=== PATIENT | male | born 1955 | race Caucasian/White ===

== ENCOUNTER 2022-05-18 16:21 | Inpatient (IN) ==
[2022-05-18] MEDS ORDERED: ASPIRIN CHEW 324 MG PO STA (16:23)
--- NOTE | 2022-05-18 16:27 | Emergency Department Note ---
Past Med/Surg History Medical History (Updated 01/18/20 @ 00:02 by Background Tejal) Atrial fibrillation DX 6-7 YEARS; ON WARFARIN; FOLLOWS W/ DR. MCCARTHY Cardiac murmur A CHILD Chronic back pain Gout Hyperlipidemia Hypertension Osteoarthritis Poor historian Stroke EMBOLIC - 7 YEARS AGO - [facility] --> [place] - FOLLOWS W/ [facility] - CAUSE? 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 Surgical History History of cardiac cath MULTIPLE - [facility] - [place] - TOTAL OF 8 STENTS PLACED - MOST RECENT CATH APPROX 10 YEARS AGO History of cataract extraction with lens replacement 11/07/18 [facility] [place] History of colonoscopy W/ POLYPECTOMY History of coronary artery bypass graft APPROX 10 YEARS AGO - [facility] - 2 VESSELS - FOLLOWS W/ DR. MCCARTHY Social History Smoking Status: Never smoker Cigarettes Per Day: 0; Second Hand Exposure: No; Hx Alcohol Use: Yes Alcohol type: beer Hx Substance Use: No Preferred Language: Qatari Communication Ability: Effective Senior Manufacturing Engineer Required: No Beliefs That Will Affect Care: None Current Living Situation: Alone Feels Safe at Home: Yes Assistive Devices: Denture - Upper Allergies Allergies Allergy/AdvReac Type Severity Reaction Status Date / Time No Known Drug Allergies Allergy Unknown NKDA Verified 01/03/20 14:53 Home Meds Home Medications Medication Instructions Recorded Confirmed allopurinol 300 mg tablet 300 mg PO HS 10/19/18 01/03/20 aspirin 81 mg tablet,delayed 81 mg PO QAM 10/19/18 01/03/20 release isosorbide mononitrate 60 mg 60 mg PO QAM 10/19/18 01/03/20 tablet,extended release 24 hr metoprolol succinate 50 mg 50 mg PO QAM 10/19/18 01/03/20 tablet,extended release 24 hr nitroglycerin 0.4 mg sublingual 1 tab sublingual UD PRN Chest Pain 10/19/18 01/03/20 tablet ranolazine 500 mg tablet,extended 500 mg PO BID 10/19/18 01/03/20 release,12 hr (Ranexa) rosuvastatin 40 mg tablet 40 mg PO QPM 10/19/18 01/03/20 trazodone 50 mg tablet 50 mg PO HS 10/19/18 01/03/20 warfarin 5 mg tablet 5 mg PO SUTUTHSA 10/19/18 01/03/20 warfarin 5 mg tablet 7.5 mg PO MOWEFR 01/03/20 01/03/20 Discharge Plan Visit Data ED Provider: Agapito Mason Prescriptions Prescriptions: No Action trazodone 50 mg Tablet 50 mg PO HS metoprolol succinate 50 mg Tablet Extended Release 24 Hr 50 mg PO QAM aspirin 81 mg Tablet,Delayed Release (Dr/Ec) 81 mg PO QAM isosorbide mononitrate 60 mg Tablet Extended Release 24 Hr 60 mg PO QAM warfarin 5 mg Tablet 5 mg PO SUT allopurinol 300 mg Tablet 300 mg PO HS rosuvastatin 40 mg Tablet 40 mg PO QPM ranolazine [Ranexa] 500 mg Tablet Extended Release 12 Hr 500 mg PO BID nitroglycerin 0.4 mg Tablet, Sublingual 1 tab sublingual UD PRN (Reason: Chest Pain) warfarin 5 mg tablet 7.5 mg PO MO Referrals Referrals: Kuldeep Briggs MD [Primary Care Provider] -
[2022-05-18] MEDS ORDERED: dilTIAZem HCl 5 MG/ML 5 ML VIAL IV STA ×2 (16:28→16:39)
[2022-05-18] MEDS ORDERED: dilTIAZem HCl 5 MG/ML 5 ML VIAL IV ONE (16:30)
[2022-05-18] MEDS ORDERED: SODIUM CHLORIDE 0.9% 500 ML IV SCH (16:30)
--- NOTE | 2022-05-18 16:34 | Emergency Department Note ---
Impression & Plan Atrial fibrillation with rapid ventricular response, Chest pain, Right bundle branch block, Elevated troponin I level ED Provider Note NAME: PORTILLO HURLEY AGE: 67 SEX: M : 1955 ARRIVES VIA: Ambulance INFORMANT: Patient, EMS ED PROVIDER(S): Jonah Loyd DO CHIEF COMPLAINT: Chest pain HPI: The patient is a 67-year-old male who with a history of coronary artery disease coronary artery bypass as well as cryptogenic stroke who presented to the emergency department for an evaluation of chest pain. The patient said a cardiology appointment up with his primary cardiology group today because he has been experiencing chest pain. He normally uses nitroglycerin fairly regularly but over the last few weeks has been using it more often. He denies having any nausea or vomiting. He has noticed some exertional dyspnea recently. The patient denies having any fever. He denies having any hemoptysis. He denies having any black or bloody bowel months. The patient states he went to see his curtain stretcher today and when he was seen he was found to be in rapid atrial fibrillation. 911 was called. The patient arrived at the emergency department via ambulance. I did receive a prehospital notification about the patient. I reviewed the patient's EKG. The patient was treated with a small IV fluid bolus. He was found to be in rapid atrial fibrillation with a right bundle branch block. The EKG was changed compared with his most previous EKG which was from 2009. No EKG was provided by the prehospital personnel or by the patient's primary cardiology office I would have to assume the right bundle branch is new compared to the previous so Cardizem was not given prior to arrival. ROS: See above HPI for pertinent positives & negatives. A total of 10 systems reviewed and were otherwise negative. PAST MEDICAL HISTORY: See Below PAST SURGICAL HISTORY: See Below FAMILY HISTORY: See Below SOCIAL HISTORY: See Below HOME MEDICATIONS: See Below ALLERGIES: See Below VITALS: See Below PHYSICAL EXAMINATION: GENERAL: Patient is awake alert in no acute distress patient is resting comfo rtably and showing no signs of anxiety EYES: The conjunctivae are clear. The pupils are round and reactive. EARS, NOSE, MOUTH AND THROAT: The nose is without any evidence of any deformity. NECK: The neck is nontender and supple. RESPIRATORY: Normal respiratory effort is noted there is no evidence of wheezing rhonchi or rales CARDIOVASCULAR: Tachycardic and irregular heart sounds were noted auscultation. There is no definite murmur noted. GASTROINTESTINAL: The abdomen is soft. Abdomen is nontender. MUSCULOSKELETAL/EXTREMITIES: There is no evidence of gross deformity full range of motion is noted in the hips and shoulders. SKIN: There is no obvious evidence of any rash. There are no petechiae, pallor or cyanosis noted. NEUROLOGIC: Patient is awake alert and oriented x3. MEDICAL DECISION MAKING: The patient is a 67-year-old male who has a history of atrial fibrillation and stroke who presented to the emergency department for an evaluation of palpitations and chest pain. The patient has been having chest pain relieved with nitroglycerin for the last week. Given the patient's presentation today I feel this could be consistent with rapid A. fib that he has been having over the last few days at least. The patient was seen at his primary curtain stretcher office and sent to the emergency department for further evaluation. The patient was treated with a small fluid bolus as well as IV Cardizem multiple times. He was found to have a supratherapeutic INR. He was felt to be a good candidate for cardioversion in the emergency department. Given the patient's acuity his n.p.o. status was felt to be adequate. I discussed the patient's laboratory and radiographic studies with him. I discussed his condition with his [facility] curtain stretcher as well as the [facility] hospitalist. The patient was cardioverted multiple times in the ER but ultimately kept going back into A. fib with RVR. Further cardiac medications were ordered at the discretion of the curtain stretcher. Triage Nursing notes reviewed. Prior medical records reviewed Vital Signs: reviewed and remarkable for tachycardia and tachypnea. Differential diagnosis: Cardiac ischemia, aortic dissection, pulmonary embolism, pneumothorax, pneumonia, pericarditis, myocarditis, esophageal rupture, GERD, cholecystitis, pancreatitis, musculoskeletal, as well as other pathologies. ER treatment provided: See below Diagnostics interpreted by me: ECG: EKG was obtained in the emergency department. My interpretation is atrial fibrillation at 193 bpm. A right bundle branch block pattern was favored. Nonspecific ST segment abnormalities were also noted. This was compared to a tracing from July 14, 2010. The previous QRS duration was 92 ms. This does represent a new right bundle branch block with a new atrial fibrillation with RVR. The patient's prehospital EKG was also reviewed. This appears to be consistent with atrial fibrillation with RVR at 194 bpm. There were no PVCs noted. Similar ST segment abnormalities were also noted. Cardiac Monitoring: An order was placed for continuous cardiac monitoring. The monitor shows a rate of 172 bpm with A. fib with RVR. Laboratory studies: As stated above and show below. Imaging studies: See below Consultation(s): I discussed this case with Dr. Benz who is on-call for [facility] cardiology. I discussed this case with the [facility] hospitalist group. They have agreed to evaluate the patient in the emergency department. ED COURSE: Procedures: Procedural Sedation Indication A. fib with RVR. Total time: 20minutes. Written consent was obtained after the risks and benefits were explained to the patient, including, but not limited to aspiration, allergic reaction, breathing difficulties, cardiac complications, vomiting, pain, event recall, bleeding, and/or infection. Pre-sedation examination and paperwork completed. The pa tient was on 100% oxygen via NRB prior to the procedure. Continous end tidal CO2 monitoring, pulse oximetry, and cardiac monitoring were utilized. Suction, airway equipment, medications, respiratory equipment, and appropriate personnel were prepared prior to the initiation of the procedure. A time out was taken. Sedation was achieved utilizing 60 mg of propofol. After I observed the patient had reached the appropriate level of sedation the main procedure was performed without complication. Sedation was discontinued and the monitoring continued. The patient recovered quickly from the effects of the medication without complication or adverse event. Critical Care: I have personally spent greater than 55 minutes of critical care time in the direct management of this patient. This includes bedside care, interpretation of diagnostic studies, and testing, discussion with consultants, patient, and family members, and other required patient management activities. This 55 minutes is in excess of all separately billable procedures. Past Med/Surg History Medical History (Updated 05/18/22 @ 23:50 by Jonah Loyd DO) Atrial fibrillation DX 6-7 YEARS; ON WARFARIN; FOLLOWS [facility]/ DR. MCCARTHY Bifascicular block CAD (coronary artery disease) Cardiac murmur A CHILD Chronic back pain CKD (chronic kidney disease), stage III Gout Hyperlipidemia Hypertension Osteoarthritis Poor historian Stroke EMBOLIC - 7 YEARS AGO - [facility] [place] - FOLLOWS W/ ANATOLIY NEUROLOGY - CAUSE? 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 Surgical History History of cardiac cath MULTIPLE - ANATOLIY CROWE - CP - TOTAL OF 8 STENTS PLACED - MOST RECENT CATH APPROX 10 YEARS AGO History of cataract extraction with lens replacement 11/07/18 [facility] LEFT EYE History of colonoscopy W/ POLYPECTOMY History of coronary artery bypass graft APPROX 10 YEARS AGO - [facility] 2 VESSELS - FOLLOWS W/ DR. 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 Beliefs That Will Affect Care: None Current Living Situation: Alone Feels Safe at Home: Yes Safety Concerns: Feels Safe At This Time Assistive Devices: Cane and Denture - Upper Allergies Allergies Allergy/AdvReac Type Severity Reaction Status Date / Time No Known Drug Allergies Allergy Unknown NKDA Verified 01/03/20 14:53 Home Meds Home Medications Medication Instructions Recorded Confirmed allopurinol 300 mg tablet 300 mg PO HS 10/19/18 05/18/22 aspirin 81 mg tablet,delayed 81 mg PO QAM 10/19/18 05/18/22 release isosorbide mononitrate 60 mg 90 mg PO QAM 10/19/18 05/18/22 tablet,extended release 24 hr metoprolol succinate 50 mg 25 mg PO QAM 10/19/18 05/18/22 tablet,extended release 24 hr nitroglycerin 0.4 mg sublingual 1 tab sublingual UD PRN Chest Pain 10/19/18 05/18/22 tablet ranolazine 500 mg tablet,extended 500 mg PO BID 10/19/18 05/18/22 release,12 hr (Ranexa) trazodone 50 mg tablet 150 mg PO HS 10/19/18 05/18/22 warfarin 5 mg tablet 5 mg PO UD 10/19/18 05/18/22 warfarin 5 mg tablet 7.5 mg PO UD 01/03/20 05/18/22 evolocumab 140 mg/mL subcutaneous 140 mg subcut . EVERY 14 DAYS 05/18/22 05/18/22 pen injector (Repatha SureClick) latanoprost 0.005 % eye drops 1 drp OPL HS 05/18/22 05/18/22 prednisone 10 mg tablet 10 mg PO UD 05/18/22 05/18/22 Results & Data (ED) Vital Signs Vital Signs - 24 hr 05/18/22 16:43 05/18/22 16:45 05/18/22 16:30 Temperature 37.1 C Temperature Source Oral Pulse Rate 190 H 205 H 193 H Pulse Rate from SpO2 Sensor 69 80 Pulse Rhythm Regular Pulse Strength Normal Respiratory Rate 25 H 24 20 Respiratory Effort / Characteristics Non-Labored Spontaneous Respiratory Depth Normal Respiratory Pattern Regular Blood Pressure 133/114 H 118/88 132/75 Blood Pressure Mean 120 98 94 Blood Pressure Position Sitting Pulse Oximetry 97 97 94 Oxygen Delivery Method Room Air Oxygen Flow Rate Sepsis Recent Fever Within 48 Hours No Sepsis New/Unexplained Change in Mental Status No Sepsis Action Taken by Nursing No Action Required End-Tidal CO2 05/18/22 16:57 05/18/22 17:11 05/18/22 17:11 Temperature Temperature Source Pulse Rate 203 H Pulse Rate from SpO2 Sensor 73 Pulse Rhythm Pulse Strength Respiratory Rate 23 Respiratory Effort / Characteristics Respiratory Depth Respiratory Pattern Blood Pressure 117/89 Blood Pressure Mean 98 Blood Pressure Position Pulse Oximetry 92 Oxygen Delivery Method Room Air Oxygen Flow Rate 2 Sepsis Recent Fever Within 48 Hours Sepsis New/Unexplained Change in Mental Status Sepsis Action Taken by Nursing End-Tidal CO2 05/18/22 17:15 05/18/22 17:22 05/18/22 17:22 Temperature Temperature Source Pulse Rate 203 H 167 H Pulse Rate from SpO2 Sensor 77 Pulse Rhythm Pulse Strength Respiratory Rate 24 24 Respiratory Effort / Characteristics Respiratory Depth Respiratory Pattern Blood Pressure 122/88 Blood Pressure Mean 99 Blood Pressure Position Pulse Oximetry 92 93 Oxygen Delivery Method Oxygen Flow Rate Sepsis Recent Fever Within 48 Hours Sepsis New/Unexplained Change in Mental Status Sepsis Action Taken by Nursing End-Tidal CO2 22 25 05/18/22 17:30 05/18/22 17:31 05/18/22 17:31 Temperature Temperature Source Pulse Rate 174 H 170 H Pulse Rate from SpO2 Sensor 74 78 Pulse Rhythm Pulse Strength Respiratory Rate 20 20 Respiratory Effort / Characteristics Respiratory Depth Respiratory Pattern Blood Pressure 115/89 Blood Pressure Mean 97 Blood Pressure Position Pulse Oximetry 98 98 Oxygen Delivery Method Oxygen Flow Rate Sepsis Recent Fever Within 48 Hours Sepsis New/Unexplained Change in Mental Status Sepsis Action Taken by Nursing End-Tidal CO2 27 24 05/18/22 17:41 05/18/22 17:41 05/18/22 17:43 Temperature Temperature Source Pulse Rate 195 H Pulse Rate from SpO2 Sensor 80 Pulse Rhythm Pulse Strength Respiratory Rate 20 Respiratory Effort / Characteristics Respiratory Depth Respiratory Pattern Blood Pressure 98/76 L 123/79 Blood Pressure Mean 83 93 Blood Pressure Position Pulse Oximetry 97 Oxygen Delivery Method Oxygen Flow Rate Sepsis Recent Fever Within 48 Hours Sepsis New/Unexplained Change in Mental Status Sepsis Action Taken by Nursing End-Tidal CO2 26 05/18/22 17:43 05/18/22 17:45 05/18/22 17:47 Temperature Temperature Source Pulse Rate 176 H 126 H Pulse Rate from SpO2 Sensor 80 91 H Pulse Rhythm Pulse Strength Respiratory Rate 21 17 Respiratory Effort / Characteristics Respiratory Depth Respiratory Pattern Blood Pressure 108/70 Blood Pressure Mean 82 Blood Pressure Position Pulse Oximetry 97 97 Oxygen Delivery Method Oxygen Flow Rate Sepsis Recent Fever Within 48 Hours Sepsis New/Unexplained Change in Mental Status Sepsis Action Taken by Nursing End-Tidal CO2 27 27 05/18/22 17:47 05/18/22 17:50 05/18/22 17:50 Temperature Temperature Source Pulse Rate 167 H 195 H Pulse Rate from SpO2 Sensor 79 71 Pulse Rhythm Pulse Strength Respiratory Rate 22 20 Respiratory Effort / Characteristics Respiratory Depth Respiratory Pattern Blood Pressure 102/70 Blood Pressure Mean 80 Blood Pressure Position Pulse Oximetry 98 95 Oxygen Delivery Method Oxygen Flow Rate Sepsis Recent Fever Within 48 Hours Sepsis New/Unexplained Change in Mental Status Sepsis Action Taken by Nursing End-Tidal CO2 25 26 05/18/22 17:53 05/18/22 17:53 05/18/22 17:56 Temperature Temperature Source Pulse Rate 183 H 153 H Pulse Rate from SpO2 Sensor 77 83 Pulse Rhythm Pulse Strength Respiratory Rate 30 H 21 Respiratory Effort / Characteristics Respiratory Depth Respiratory Pattern Blood Pressure 93/70 L Blood Pressure Mean 77 Blood Pressure Position Pulse Oximetry 94 96 Oxygen Delivery Method Oxygen Flow Rate Sepsis Recent Fever Within 48 Hours Sepsis New/Unexplained Change in Mental Status Sepsis Action Taken by Nursing End-Tidal CO2 25 28 05/18/22 17:56 05/18/22 17:59 05/18/22 17:59 Temperature Temperature Source Pulse Rate 155 H Pulse Rate from SpO2 Sensor 76 Pulse Rhythm Pulse Strength Respiratory Rate 20 Respiratory Effort / Characteristics Respiratory Depth Respiratory Pattern Blood Pressure 102/72 102/69 Blood Pressure Mean 82 80 Blood Pressure Position Pulse Oximetry 95 Oxygen Delivery Method Oxygen Flow Rate Sepsis Recent Fever Within 48 Hours Sepsis New/Unexplained Change in Mental Status Sepsis Action Taken by Nursing End-Tidal CO2 27 05/18/22 18:00 05/18/22 18:00 05/18/22 18:02 Temperature Temperature Source Pulse Rate 175 H 192 H Pulse Rate from SpO2 Sensor 62 74 Pulse Rhythm Pulse Strength Respiratory Rate 26 H 17 Respiratory Effort / Characteristics Respiratory Depth Respiratory Pattern Blood Pressure 94/72 L Blood Pressure Mean 79 Blood Pressure Position Pulse Oximetry 95 96 Oxygen Delivery Method Oxygen Flow Rate Sepsis Recent Fever Within 48 Hours Sepsis New/Unexplained Change in Mental Status Sepsis Action Taken by Nursing End-Tidal CO2 05/18/22 18:02 05/18/22 18:04 05/18/22 18:04 Temperature Temperature Source Pulse Rate 167 H Pulse Rate from SpO2 Sensor 77 Pulse Rhythm Pulse Strength Respiratory Rate 24 Respiratory Effort / Characteristics Respiratory Depth Respiratory Pattern Blood Pressure 83/65 L 89/70 L Blood Pressure Mean 71 76 Blood Pressure Position Pulse Oximetry 96 Oxygen Delivery Method Oxygen Flow Rate Sepsis Recent Fever Within 48 Hours Sepsis New/Unexplained Change in Mental Status Sepsis Action Taken by Nursing End-Tidal CO2 05/18/22 18:07 05/18/22 18:07 05/18/22 18:09 Temperature Temperature Source Pulse Rate 173 H Pulse Rate from SpO2 Sensor 79 Pulse Rhythm Pulse Strength Respiratory Rate 25 H Respiratory Effort / Characteristics Respiratory Depth Respiratory Pattern Blood Pressure 101/51 L 90/71 L Blood Pressure Mean 67 77 Blood Pressure Position Pulse Oximetry 94 Oxygen Delivery Method Oxygen Flow Rate Sepsis Recent Fever Within 48 Hours Sepsis New/Unexplained Change in Mental Status Sepsis Action Taken by Nursing End-Tidal CO2 05/18/22 18:09 05/18/22 18:14 05/18/22 18:14 Temperature Temperature Source Pulse Rate 166 H 154 H Pulse Rate from SpO2 Sensor 80 96 H Pulse Rhythm Pulse Strength Respiratory Rate 16 28 H Respiratory Effort / Characteristics Respiratory Depth Respiratory Pattern Blood Pressure 181/147 H Blood Pressure Mean 158 Blood Pressure Position Pulse Oximetry 96 91 Oxygen Delivery Method Oxygen Flow Rate Sepsis Recent Fever Within 48 Hours Sepsis New/Unexplained Change in Mental Status Sepsis Action Taken by Nursing End-Tidal CO2 05/18/22 18:15 05/18/22 18:19 05/18/22 18:19 Temperature Temperature Source Pulse Rate 178 H 147 H Pulse Rate from SpO2 Sensor 92 H 103 H Pulse Rhythm Pulse Strength Respiratory Rate 30 H 30 H Respiratory Effort / Characteristics Respiratory Depth Respiratory Pattern Blood Pressure 110/74 Blood Pressure Mean 86 Blood Pressure Position Pulse Oximetry 92 99 Oxygen Delivery Method Oxygen Flow Rate Sepsis Recent Fever Within 48 Hours Sepsis New/Unexplained Change in Mental Status Sepsis Action Taken by Nursing End-Tidal CO2 05/18/22 18:21 05/18/22 18:21 05/18/22 18:27 Temperature Temperature Source Pulse Rate 196 H 164 H Pulse Rate from SpO2 Sensor Pulse Rhythm Pulse Strength Respiratory Rate 22 21 Respiratory Effort / Characteristics Respiratory Depth Respiratory Pattern Blood Pressure 80/66 L Blood Pressure Mean 70 Blood Pressure Position Pulse Oximetry 93 91 Oxygen Delivery Method Oxygen Flow Rate Sepsis Recent Fever Within 48 Hours Sepsis New/Unexplained Change in Mental Status Sepsis Action Taken by Nursing End-Tidal CO2 05/18/22 18:27 05/18/22 18:30 05/18/22 18:31 Temperature Temperature Source Pulse Rate 163 H Pulse Rate from SpO2 Sensor 79 Pulse Rhythm Pulse Strength Respiratory Rate 22 Respiratory Effort / Characteristics Respiratory Depth Respiratory Pattern Blood Pressure 93/69 L 122/44 L Blood Pressure Mean 77 70 Blood Pressure Position Pulse Oximetry 98 Oxygen Delivery Method Oxygen Flow Rate Sepsis Recent Fever Within 48 Hours Sepsis New/Unexplained Change in Mental Status Sepsis Action Taken by Nursing End-Tidal CO2 05/18/22 18:31 05/18/22 18:41 05/18/22 18:41 Temperature Temperature Source Pulse Rate 176 H 141 H Pulse Rate from SpO2 Sensor 67 Pulse Rhythm Pulse Strength Respiratory Rate 25 H 26 H Respiratory Effort / Characteristics Respiratory Depth Respiratory Pattern Blood Pressure 91/71 L Blood Pressure Mean 77 Blood Pressure Position Pulse Oximetry 98 Oxygen Delivery Method Oxygen Flow Rate Sepsis Recent Fever Within 48 Hours Sepsis New/Unexplained Change in Mental Status Sepsis Action Taken by Nursing End-Tidal CO2 05/18/22 18:45 05/18/22 18:47 05/18/22 18:47 Temperature Temperature Source Pulse Rate 163 H 169 H Pulse Rate from SpO2 Sensor 79 67 Pulse Rhythm Pulse Strength Respiratory Rate 25 H 28 H Respiratory Effort / Characteristics Respiratory Depth Respiratory Pattern Blood Pressure 84/68 L Blood Pressure Mean 73 Blood Pressure Position Pulse Oximetry 91 95 Oxygen Delivery Method Oxygen Flow Rate Sepsis Recent Fever Within 48 Hours Sepsis New/Unexplained Change in Mental Status Sepsis Action Taken by Nursing End-Tidal CO2 05/18/22 19:00 05/18/22 19:15 05/18/22 19:16 Temperature Temperature Source Pulse Rate 148 H 160 H 167 H Pulse Rate from SpO2 Sensor 84 71 Pulse Rhythm Pulse Strength Respiratory Rate 27 H 19 28 H Respiratory Effort / Characteristics Respiratory Depth Respiratory Pattern Blood Pressure Blood Pressure Mean Blood Pressure Position Pulse Oximetry 96 99 95 Oxygen Delivery Method Oxygen Flow Rate Sepsis Recent Fever Within 48 Hours Sepsis New/Unexplained Change in Mental Status Sepsis Action Taken by Nursing End-Tidal CO2 05/18/22 19:16 05/18/22 19:30 05/18/22 19:30 Temperature Temperature Source Pulse Rate 153 H Pulse Rate from SpO2 Sensor 84 Pulse Rhythm Pulse Strength Respiratory Rate 29 H Respiratory Effort / Characteristics Respiratory Depth Respiratory Pattern Blood Pressure 106/73 104/75 Blood Pressure Mean 84 84 Blood Pressure Position Pulse Oximetry 96 Oxygen Delivery Method Oxygen Flow Rate Sepsis Recent Fever Within 48 Hours Sepsis New/Unexplained Change in Mental Status Sepsis Action Taken by Nursing End-Tidal CO2 Home Medications Current Medication List: was personally reviewed by me Laboratory Data Attestation: I reviewed the patient's lab results. Result diagrams: 05/18/22 16:20 05/18/22 16:20 Lab Results 05/18/22 05/18/22 05/18/22 Range/Units 16:20 16:20 16:20 WBC 10.68 (4.8-10.8) K/ul RBC 4.57 L (4.63-6.08) M/uL Hgb 14.3 (14.0-18.0) g/dl Hct 44.0 (40.1-51.0) % MCV 96.3 (80.0-100.0) fL MCH 31.3 (25.0-34.0) pg MCHC 32.5 (32.0-36.0) g/dL RDW Std Deviation 47.4 H (36.4-46.3) fL RDW Coeff of Vivien 13.7 (11.5-14.5) % Plt Count 204 (130-400) K/uL MPV 11.3 (9.4-12.4) fL Immature Gran % (Auto) 0.9 % Neut % (Auto) 69.5 % Lymph % (Auto) 17.1 % Latimer % (Auto) 11.3 % Eos % (Auto) 1.0 % Baso % (Auto) 0.2 % Neut # (Auto) 7.41 H (1.4-6.5) K/uL Lymph # (Auto) 1.83 (1.2-3.4) K/uL Latimer # (Auto) 1.21 H (0.24-0.82) K/uL Eos # (Auto) 0.11 (0-0.50) K/uL Baso # (Auto) 0.02 (0-0.2) K/uL Immature Gran # (Auto) 0.10 H (0.00-0.02) K/uL PT 44.7 H (9.0-12.0) Seconds INR 4.6 H (0.9-1.1) APTT 46.7 H* (21.0-31.0) Seconds PTT Ratio 1.7 Sodium 140 (136-145) mmol/L Potassium 4.5 (3.5-5.1) mmol/L Chloride 104 (98-107) mmol/L Carbon Dioxide 29 (21-32) mmol/L Anion Gap 7 (3-11) BUN 38 H (6-23) mg/dl Creatinine 1.62 H (0.6-1.4) mg/dl Est Cr Clr Drug Dosing 43.4 ml/min Est GFR ( Amer) 50.5 ml/min Est GFR (Non-Af Amer) 43.6 ml/min BUN/Creatinine Ratio 23.5 H (10-20) Glucose 99 (70-99(Fasting)) mg/dl Calcium 9.4 (8.5-10.1) mg/dl Magnesium 2.0 (1.7-2.4) mg/dl Total Bilirubin 1.8 H (0.2-1.0) mg/dl AST 104 H (13-39) U/L ALT 162 H (7-52) U/L Alkaline Phosphatase 83 (34-104) U/L Troponin I High Sens 59.4 H* (0-20) pg/ml Total Protein 6.9 (6.0-8.3) gm/dl Albumin 3.9 (3.4-5.0) gm/dl Globulin 3.0 (2.5-4.0) gm/dl Albumin/Globulin Ratio 1.3 (0.9-2) TSH (0.300-4.500) uIu/ml SARS-CoV-2, RNA, NAAT (NEGATIVE) 05/18/22 05/18/22 Range/Units 16:20 16:47 WBC (4.8-10.8) K/ul RBC (4.63-6.08) M/uL Hgb (14.0-18.0) g/dl Hct (40.1-51.0) % MCV (80.0-100.0) fL MCH (25.0-34.0) pg MCHC (32.0-36.0) g/dL RDW Std Deviation (36.4-46.3) fL RDW Coeff of Vivien (11.5-14.5) % Plt Count (130-400) K/uL MPV (9.4-12.4) fL Immature Gran % (Auto) % Neut % (Auto) % Lymph % (Auto) % Latimer % (Auto) % Eos % (Auto) % Baso % (Auto) % Neut # (Auto) (1.4-6.5) K/uL Lymph # (Auto) (1.2-3.4) K/uL Latimer # (Auto) (0.24-0.82) K/uL Eos # (Auto) (0-0.50) K/uL Baso # (Auto) (0-0.2) K/uL Immature Gran # (Auto) (0.00-0.02) K/uL PT (9.0-12.0) Seconds INR (0.9-1.1) APTT (21.0-31.0) Seconds PTT Ratio Sodium (136-145) mmol/L Potassium (3.5-5.1) mmol/L Chloride (98-107) mmol/L Carbon Dioxide (21-32) mmol/L Anion Gap (3-11) BUN (6-23) mg/dl Creatinine (0.6-1.4) mg/dl Est Cr Clr Drug Dosing ml/min Est GFR ( Amer) ml/min Est GFR (Non-Af Amer) ml/min BUN/Creatinine Ratio (10-20) Glucose (70-99(Fasting)) mg/dl Calcium (8.5-10.1) mg/dl Magnesium (1.7-2.4) mg/dl Total Bilirubin (0.2-1.0) mg/dl AST (13-39) U/L ALT (7-52) U/L Alkaline Phosphatase (34-104) U/L Troponin I High Sens (0-20) pg/ml Total Protein (6.0-8.3) gm/dl Albumin (3.4-5.0) gm/dl Globulin (2.5-4.0) gm/dl Albumin/Globulin Ratio (0.9-2) TSH 1.580 (0.300-4.500) uIu/ml SARS-CoV-2, RNA, NAAT NEGATIVE (NEGATIVE) Administered Medications Amiodarone HCl/Dextrose (Nexterone / D5w) 360 mg in 200 mls @ 33.333 mls/hr IV ONE ONE Stop: 05/19/22 00:05 Last Admin: 05/18/22 18:48 Dose: 1 mg/min, 33.3 mls/hr Documented By: RJ Co-signed By: DUANE Latanoprost (Latanoprost 0.005% Op Soln 2.5 Ml Btl) 1 drops OPL [facility] Stop: 06/17/22 20:59 Last Admin: 05/18/22 22:08 Dose: 1 drops Documented By: ADI Metoprolol Tartrate (Metoprolol Tartrate 25 Mg Tab) 25 mg PO Q6 RAJ Stop: 06/17/22 21:29 Last Admin: 05/18/22 22:08 Dose: 25 mg Documented By: ADI Ranolazine (Ranolazine 500 Mg Er Tab) 500 mg PO BID RAJ Stop: 06/17/22 20:59 Last Admin: 05/18/22 22:07 Dose: 500 mg Documented By: ADI Trazodone HCl (Trazodone Hcl 100 Mg Tab) 100 mg PO RAJ Stop: 06/17/22 20:59 Last Admin: 05/18/22 22:07 Dose: 100 mg Documented By: ADI Discontinued Medications Aspirin (Aspirin Chew 324 Mg) 324 mg PO NOW STA Stop: 05/18/22 16:24 Last Admin: 05/18/22 16:37 Dose: 324 mg Documented By: MEETA Diltiazem HCl (Diltiazem Hcl 5 Mg/Ml 5 Ml Vial) 10 mg IV NOW STA Stop: 05/18/22 16:29 Last Admin: 05/18/22 16:37 Dose: 10 mg Documented By: MEETA Co-signed By: CARMEN Diltiazem HCl (Diltiazem Hcl 5 Mg/Ml 5 Ml Vial) Confirm Administered Dose 25 mg IV .STK-MED ONE Stop: 05/18/22 16:31 Last Admin: 05/18/22 18:42 Dose: Not Given Documented By: RJ Diltiazem HCl (Diltiazem Hcl 5 Mg/Ml 5 Ml Vial) 20 mg IV NOW STA Stop: 05/18/22 16:40 Last Admin: 05/18/22 16:43 Dose: 20 mg Documented By: MEETA Co-signed By: NJ Sodium Chloride (Nss) 500 mls @ 999 mls/hr IV .Q31M RAJ Stop: 05/18/22 17:00 Last Infusion: 05/18/22 18:43 Dose: 0 mls/hr Documented By: Admin: 05/18/22 17:01 Dose: 999 mls/hr Documented By: NJ Amiodarone HCl/Dextrose (Nexterone / D5w) 150 mg in 100 mls @ 600 mls/hr IV NOW STA Stop: 05/18/22 18:07 Last Admin: 05/18/22 18:29 Dose: 600 mls/hr Documented By: RJ Co-signed By: FRANCISCO Digoxin 250 mcg/ Syringe 10 mls @ 2 mls/min IV ONE ONE Stop: 05/18/22 22:34 Last Admin: 05/18/22 22:37 Dose: 2 mls/min Documented By: ADI Metoprolol Tartrate (Metoprolol Tartrate 1 Mg/Ml Vial) Confirm Administered Dose 10 mg IV .STK-MED ONE Stop: 05/18/22 17:46 Last Admin: 05/18/22 18:42 Dose: 5 mg Documented By: RJ Propofol (Propofol Iv Emulsion 10 Mg/Ml 20 Ml Vial) Confirm Administered Dose 200 mg IV .STK-MED ONE Stop: 05/18/22 17:07 Last Admin: 05/18/22 18:28 Dose: 60 mg Documented By: BERNIE Co-signed By: ROMAN Imaging Data Radiologist's Impression: Chest X-Ray 05/18/22 16:24 XR chest 1V portable HISTORY: 67 years-old Male weakness acute weakness COMPARISON: Chest radiograph 07/14/2010 TECHNIQUE: AP view of the chest FINDINGS: Cardiac silhouette is enlarged. Prior median sternotomy. Pulmonary vascular congestion with interstitial coarsening and ill-defined bilateral airspace opacities. No pneumothorax or large pleural effusion. Degenerative changes of the shoulders and spine. Healed mid left clavicular fracture deformity. IMPRESSION: Cardiomegaly with pulmonary vascular congestion and mixed interstitial and alveolar opacities, likely front office representative of pulmonary edema. Pneumonia could appear similarly. ACT 112: Negative or not required by law. The above report was generated using voice recognition software. It may contain grammatical, syntax or spelling errors. Electronically signed by: Stone Snow M.D. 05/18/2022 5:35 PM Discharge Plan Visit Data Chief Complaint: Cardiac Assessment ED Provider: Jonah Loyd Discharge Problem: Atrial fibrillation with rapid ventricular response, Chest pain, Right bundle branch block, Elevated troponin I level Patient Disposition: Admitted As Inpatient Discharge Instructions Interventions: ED Discharge Assessment Last Done: 05/18/22 20:14
--- NOTE | 2022-05-18 16:37 | Cardiology Consultation ---
Date of Consultation May 18, 2022 Assessment & Plan (1) Atrial fibrillation with rapid ventricular response: (2) Right bundle branch block: Plan -Recent outpatient INR on 05/04/22 was at goal. -If INR today is > 2 recommend proceeding with cardioversion in an expedited fashion due to highly symptomatic atrial fibrillation with ventricular rates in the range of 180-200 bpm. -Discussed with patient's son, Mane , by phone. Informed consent obtained form patient who elects to proceed. History of Present Illness History of Present Illness Maikol Layton is a 67-year-old male seen in cardiology consultation per the request of Dr. Loyd for the evaluation of tachycardia. The patient presented to the [facility] cardiology clinic today as an acute visit with 2 days of chest discomfort with associated increased shortness of breath and reduced exercise tolerance as well as pain in his calves preventing him from walking 50 feet. He believes the symptoms have been present x 2 weeks. EKG performed at 1456 at cardiology clinic revealed atrial fibrillation with rapid ventricular response, ventricular rates approaching 200 bpm with right bundle branch block morphology. Cardiac Problem List: 1.Longstanding ischemic heart disease -Multiple coronary interventions, left anterior descending, left anterior descending diagonal, ultimately receiving SCHROEDER graft to LAD and saphenous vein graft to left anterior descending diagonal in 2005. 2.Recurrent coronary interventions with PTCA and stenting of the vein graft to the diagonal in 2007. 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 4.Cardiac catheterization in 2013 with patent grafts and branch vessel disease of septal as culprit for chronic class II-III angina. 5.Dyslipidemia. LDL goal less than 70 mg/dL. Intolerance to statins (simvastatin, atorvastatin, rosuvastatin) as well as Zetia 6.Frequent atrial ectopy. 7.Paroxysmal atrial fibrillation. 8.Bifascicular heart block 9.Chronic coumadin anticoagulation 10. Past history of stroke a few days after coronary intervention Allergies Allergy/AdvReac Type Severity Reaction Status Date / Time No Known Drug Allergies Allergy Unknown NKDA Verified 01/03/20 14:53 Home Medications Medication Instructions Recorded Confirmed Type allopurinol 300 mg tablet 300 mg PO HS 10/19/18 01/03/20 History aspirin 81 mg tablet,delayed 81 mg PO QAM 10/19/18 01/03/20 History release isosorbide mononitrate 60 mg 60 mg PO QAM 10/19/18 01/03/20 History tablet,extended release 24 hr metoprolol succinate 50 mg 50 mg PO QAM 10/19/18 01/03/20 History tablet,extended release 24 hr nitroglycerin 0.4 mg sublingual 1 tab sublingual UD PRN Chest Pain 10/19/18 01/03/20 History tablet ranolazine 500 mg tablet,extended 500 mg PO BID 10/19/18 01/03/20 History release,12 hr (Ranexa) rosuvastatin 40 mg tablet 40 mg PO QPM 10/19/18 01/03/20 History trazodone 50 mg tablet 50 mg PO HS 10/19/18 01/03/20 History warfarin 5 mg tablet 5 mg PO SUTUTHSA 10/19/18 01/03/20 History warfarin 5 mg tablet 7.5 mg PO MOWEFR 01/03/20 01/03/20 History Patient History Medical History Atrial fibrillation DX 6-7 YEARS; ON WARFARIN; FOLLOWS W/ DR. MCCARTHY Cardiac murmur A CHILD Chronic back pain Gout Hyperlipidemia Hypertension Osteoarthritis Poor historian Stroke EMBOLIC - 7 YEARS AGO - [facility] --> [facility] - FOLLOWS W/ [facility] - CAUSE? 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 Surgical History History of cardiac cath MULTIPLE - [facility] - [place] - TOTAL OF 8 STENTS PLACED - MOST RECENT CATH APPROX 10 YEARS AGO History of cataract extraction with lens replacement 11/07/18 [facility] [place] History of colonoscopy W/ POLYPECTOMY History of coronary artery bypass graft APPROX 10 YEARS AGO - [facility] - 2 VESSELS - FOLLOWS W/ DR. MCCARTHY Social History Smoking Status: Never smoker Cigarettes Per Day: 0; Second Hand Exposure: No; Hx Alcohol Use: Yes Alcohol type: beer Hx Substance Use: No Preferred Language: Ivorian Communication Ability: Effective Glue Spreader Required: No Beliefs That Will Affect Care: None Current Living Situation: Alone Feels Safe at Home: Yes Assistive Devices: Denture - Upper Review of Systems Review of Systems: All systems reviewed & are unremarkable except as noted in HPI & below Physical Exam Physical Exam: Temp Pulse Resp BP Pulse Ox O2 Del Method O2 Flow Rate 37.1 C 205 H 24 118/88 97 2 05/18/22 16:30 05/18/22 16:45 05/18/22 16:45 05/18/22 16:45 05/18/22 16:45 05/18/22 16:57 05/18/22 16:57 Constitutional: WD/WN, vitals as above Respiratory: normal respiratory effort, lungs clear to auscultation Cardiovascular: Rate/Rhythm: + tachycardic Heart Sounds: no murmur Extremities: no edema Gastrointestinal (Abdomen): normal bowel sounds, soft, nontender, no hepatosplenomegaly Neurologic: PERRL, EOMI, accommodation nl, no face palsy, no dysarthria Results & Data ([facility]) Laboratory Results CBC 05/18/22 Range/Units 16:20 WBC 10.68 (4.8-10.8) K/ul RBC 4.57 L (4.63-6.08) M/uL Hgb 14.3 (14.0-18.0) g/dl Hct 44.0 (40.1-51.0) % Plt Count 204 (130-400) K/uL Neut # (Auto) 7.41 H (1.4-6.5) K/uL Lymph # (Auto) 1.83 (1.2-3.4) K/uL [place] # (Auto) 1.21 H (0.24-0.82) K/uL Eos # (Auto) 0.11 (0-0.50) K/uL Baso # (Auto) 0.02 (0-0.2) K/uL Intake and Output 05/18/22 05/18/22 05/18/22 06:59 14:59 22:59 Other: Weight 79.4 kg Weight Measurement Method Built in [facility] Patient Weight 05/19/22 06:59 Weight 79.4 kg
[2022-05-18] MEDS ORDERED: PROPOFOL IV EMULSION 10 MG/ML 20 ML VIAL IV ONE (17:06)
[2022-05-18 17:07] LABS: Basophils # (auto) 0.02 K/uL (0-0.2); Basophils % (auto) 0.2 %; Eosinophils # (auto) 0.11 K/uL (0-0.50); Hemoglobin 14.3 g/dl (14.0-18.0); Immature Granulocytes % (auto) 0.9 %; Lymphocytes # (auto) 1.83 K/uL (1.2-3.4); Lymphocytes % (auto) 17.1 %; Mean Corpuscular Hemoglobin 31.3 pg (25.0-34.0); Mean Corpuscular Hgb Conc 32.5 g/dL (32.0-36.0); Mean Corpuscular Volume 96.3 fL (80.0-100.0); Mean Platelet Volume 11.3 fL (9.4-12.4); Monocytes # (auto) 1.21 K/uL (0.24-0.82); Monocytes % (auto) 11.3 %; Neutrophils # (auto) 7.41 K/uL (1.4-6.5); Neutrophils % (auto) 69.5 %; Platelet Count 204 K/uL (130-400); RDW Coefficient of Variation 13.7 % (11.5-14.5); RDW Standard Deviation 47.4 fL (36.4-46.3); Red Blood Count 4.57 M/uL (4.63-6.08); White Blood Count 10.68 K/ul (4.8-10.8)
[2022-05-18 17:16] LABS: Albumin Globulin Ratio 1.3 (0.9-2); Albumin Level 3.9 gm/dl (3.4-5.0); BUN Creatinine Ratio 23.5 (10-20); Bilirubin,Total 1.8 mg/dl (0.2-1.0); Calcium 9.4 mg/dl (8.5-10.1); Creatinine Clr Calc Pharmacy 43.4 ml/min; Est GFR (African American) 50.5 ml/min; Est GFR (Non-African American) 43.6 ml/min; Potassium 4.5 mmol/L (3.5-5.1); Total Protein 6.9 gm/dl (6.0-8.3)
[2022-05-18 17:22] LABS: Troponin I High Sensitivity 59.4 pg/ml (0-20)
[2022-05-18 17:27] LABS: INR 4.6 (0.9-1.1); Partial Thromboplastin Ratio 1.7; Prothrombin Time 44.7 Seconds (9.0-12.0)
[2022-05-18 17:31] LABS: Partial Thromboplastin Time 46.7 Seconds (21.0-31.0)
--- NOTE | 2022-05-18 17:36 | XRay Report ---
XR chest 1V portable HISTORY: 67 years-old Male weakness acute weakness COMPARISON: Chest radiograph 07/14/2010 TECHNIQUE: AP view of the chest FINDINGS: Cardiac silhouette is enlarged. Prior median sternotomy. Pulmonary vascular congestion with interstit ial coarsening and ill-defined bilateral airspace opacities. No pneumothorax or large pleural effusio n. Degenerative changes of the shoulders and spine. Healed mid left clavicular fracture deformity. 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 Pneumonia could appear similarly. ACT 112: Negative or not required by law. The above report was generated using voice recognition software. It may contain grammatical, syntax o r spelling errors. Electronically signed by: Stone Snow M.D. 05/18/2022 5:35 PM
[2022-05-18] MEDS ORDERED: METOPROLOL TARTRATE 1 MG/ML VIAL IV ONE (17:45)
[2022-05-18] MEDS ORDERED: STAT IV Infusion **Titration per Protocol STA (17:56)
[2022-05-18] MEDS ORDERED: AMIODARONE IV BOLUS & DRIP IV STA (17:56)
[2022-05-18] MEDS ORDERED: 0.2 MICRON FILTER SET 1 EACH IV STA (17:58)
[2022-05-18] MEDS ORDERED: AMIODARONE / D5W 150 MG/100 ML BAG IV STA (17:58)
[2022-05-18] MEDS ORDERED: AMIODARONE / D5W 360 MG/200 ML BAG IV ONE (18:06)
--- NOTE | 2022-05-18 18:06 | Cardioversion ---
Date of Service May 18, 2022 Electrical Cardioversion Rpt Electrical Cardioversion Report Preprocedure diagnosis: Symptomatic atrial fibrillation with rapid ventricular response Post procedure diagnosis: Successful direct-current cardioversion, ongoing atrial fibrillation with rapid ventricular response Direct-current cardioversion procedure note: After informed consent was obtained and timeout was performed, the patient was sedated with the assistance of Dr. Loyd, receiving 60 mg of IV propofol. Patient underwent 3 attempts of direct-current cardioversion receiving 3 doses of biphasic energy 150 J, 250 J, 300 J, but remained in atrial fibrillation. Vital signs remained stable, with ongoing tachycardia noted. Post attempted cardioversion, patient received 5 mg of IV metoprolol, with mild improvement in the heart rates, however rapid ventricular rate persists. Complications: none Assistants: none Plan: Admit to telemetry unit. Patient noted to have creatinine of 1.6, mildly elevated LFTs. This is likely due to relative poor cardiac output in the setting of atrial fibrillation with rapid ventricular spots, likely for at least 2 weeks based on the patient's symptom onset. INR 4.6. Will proceed with changing his metoprolol succinate to metoprolol tartrate, 25 mg 4 times daily, next dose due at 2100. Patient able to eat tonight when he recovers from the propofol. Patient to be n.p.o. after midnight, for possible repeat trial of cardioversion tomorrow. It is noted that while in the setting of an elevated INR, and mildly elevated liver function test, amiodarone treatment is not ideal, it is felt to be the best option, is maintaining sinus rhythm appears to be of utmost importance.
--- NOTE | 2022-05-18 18:06 | Emergency Department Note ---
Post Sedation Assessment Vital Signs Temp Pulse Resp BP Pulse Ox O2 Del Method O2 Flow Rate 05/18/22 19:30 153 H 29 H 96 05/18/22 19:30 104/75 05/18/22 19:16 106/73 05/18/22 19:16 167 H 28 H 95 05/18/22 19:15 160 H 19 99 05/18/22 19:00 148 H 27 H 96 05/18/22 18:47 169 H 28 H 95 05/18/22 18:47 84/68 L 05/18/22 18:45 163 H 25 H 91 05/18/22 18:41 91/71 L 05/18/22 18:41 141 H 26 H 05/18/22 18:31 176 H 25 H 98 05/18/22 18:31 122/44 L 05/18/22 18:30 163 H 22 98 05/18/22 18:27 93/69 L 05/18/22 18:27 164 H 21 91 05/18/22 18:21 196 H 22 93 05/18/22 18:21 80/66 L 05/18/22 18:19 110/74 05/18/22 18:19 147 H 30 H 99 05/18/22 18:15 178 H 30 H 92 05/18/22 18:14 181/147 H 05/18/22 18:14 154 H 28 H 91 05/18/22 18:09 166 H 16 96 05/18/22 18:09 90/71 L 05/18/22 18:07 101/51 L 05/18/22 18:07 173 H 25 H 94 05/18/22 18:04 89/70 L 05/18/22 18:04 167 H 24 96 05/18/22 18:02 83/65 L 05/18/22 18:02 192 H 17 96 05/18/22 18:00 175 H 26 H 95 05/18/22 18:00 94/72 L 05/18/22 17:59 102/69 05/18/22 17:59 155 H 20 95 05/18/22 17:56 102/72 05/18/22 17:56 153 H 21 96 05/18/22 17:53 183 H 30 H 94 05/18/22 17:53 93/70 L 05/18/22 17:50 102/70 05/18/22 17:50 195 H 20 95 05/18/22 17:47 167 H 22 98 05/18/22 17:47 108/70 05/18/22 17:45 126 H 17 97 05/18/22 17:43 176 H 21 97 05/18/22 17:43 123/79 05/18/22 17:41 195 H 20 97 05/18/22 17:41 98/76 L 05/18/22 17:31 170 H 20 98 05/18/22 17:31 115/89 05/18/22 17:30 174 H 20 98 05/18/22 17:22 122/88 05/18/22 17:22 167 H 24 93 05/18/22 17:15 203 H 24 92 05/18/22 17:11 203 H 23 92 05/18/22 17:11 117/89 05/18/22 16:57 Room Air 2 05/18/22 16:30 37.1 C 193 H 20 132/75 94 Room Air 05/18/22 16:45 205 H 24 118/88 97 05/18/22 16:43 190 H 25 H 133/114 H 97 Recovery Score Activity: Moves 4 extremities Respiration: Deep Breath/Cough Circulation: +/-20% PreAnes Value Consciousness: Fully Awake Oxygen Saturation: O2 needed for >90% Discharge Sedation Level of Care: Phase I Unexpected Event: None Post Sedation Plan On clinical assessment, the patient appears to have tolerated the sedation without complications. Patient is recovering as anticipated. Patient will continue to be monitored by nursing and may be discharged when sedation discharge criteria are met per below protocol. Upon Completions of procedure up to 15 minutes continue every 5 minute vital signs and the P.A.R. score; then discharge to a Phase I or Fast Track to Phase II per the following guidelines: * Discharge Patient to appropriate Phase II area if PAR is 8 or greater or return to pre- procedure baseline. The post - procedure orders will be as directed. * If PAR score is less than 8 or not return to pre-procedure baseline then patient will follow Phase I monitoring till PAR is reached for Phase II. The Phase I may be done in procedure room or may call to secure a Phase I area. * If naloxone or flumazenil are used for reversal, hold in Phase I for continued monitoring from when last reversal dose was given for a minimum of 60 minutes or longer pending the nurse and/or physician discretion of patient condition before discharge to Phase II. Please call the Sedation Physician to re-evaluate and complete post-note for discharge to Phase II area. Do NOT discharge from procedure sedation or Phase 1 until post- sedation evaluation note is complete by procedure /sedation MD Sedation Discharge Instructions to be given to the patient at discharge to home. Sedation Data Time Out Team Members Agree on the Following: Correct Patient, Correct Procedure and Allergies Verified Team Agrees: Yes Specimens Specimens Obtained: No : Chest pain Qualifiers: Chest pain type: unspecified Qualified Code(s): R07.9 - Chest pain, unspecified
--- NOTE | 2022-05-18 18:06 | Emergency Department Note ---
Pre Sedation Assessment Vital Signs Temp Pulse Resp BP Pulse Ox O2 Del Method O2 Flow Rate 05/18/22 19:30 153 H 29 H 96 05/18/22 19:30 104/75 05/18/22 19:16 106/73 05/18/22 19:16 167 H 28 H 95 05/18/22 19:15 160 H 19 99 05/18/22 19:00 148 H 27 H 96 05/18/22 18:47 169 H 28 H 95 05/18/22 18:47 84/68 L 05/18/22 18:45 163 H 25 H 91 05/18/22 18:41 91/71 L 05/18/22 18:41 141 H 26 H 05/18/22 18:31 176 H 25 H 98 05/18/22 18:31 122/44 L 05/18/22 18:30 163 H 22 98 05/18/22 18:27 93/69 L 05/18/22 18:27 164 H 21 91 05/18/22 18:21 196 H 22 93 05/18/22 18:21 80/66 L 05/18/22 18:19 110/74 05/18/22 18:19 147 H 30 H 99 05/18/22 18:15 178 H 30 H 92 05/18/22 18:14 181/147 H 05/18/22 18:14 154 H 28 H 91 05/18/22 18:09 166 H 16 96 05/18/22 18:09 90/71 L 05/18/22 18:07 101/51 L 05/18/22 18:07 173 H 25 H 94 05/18/22 18:04 89/70 L 05/18/22 18:04 167 H 24 96 05/18/22 18:02 83/65 L 05/18/22 18:02 192 H 17 96 05/18/22 18:00 175 H 26 H 95 05/18/22 18:00 94/72 L 05/18/22 17:59 102/69 05/18/22 17:59 155 H 20 95 05/18/22 17:56 102/72 05/18/22 17:56 153 H 21 96 05/18/22 17:53 183 H 30 H 94 05/18/22 17:53 93/70 L 05/18/22 17:50 102/70 05/18/22 17:50 195 H 20 95 05/18/22 17:47 167 H 22 98 05/18/22 17:47 108/70 05/18/22 17:45 126 H 17 97 05/18/22 17:43 176 H 21 97 05/18/22 17:43 123/79 05/18/22 17:41 195 H 20 97 05/18/22 17:41 98/76 L 05/18/22 17:31 170 H 20 98 05/18/22 17:31 115/89 05/18/22 17:30 174 H 20 98 05/18/22 17:22 122/88 05/18/22 17:22 167 H 24 93 05/18/22 17:15 203 H 24 92 05/18/22 17:11 203 H 23 92 05/18/22 17:11 117/89 05/18/22 16:57 Room Air 2 05/18/22 16:30 37.1 C 193 H 20 132/75 94 Room Air 05/18/22 16:45 205 H 24 118/88 97 05/18/22 16:43 190 H 25 H 133/114 H 97 Cardiovascular + tachycardic and + irregularly irregular + S1 normal and + S2 normal; no murmur + PMI normal + peripheral pulses normal; no JVD + capillary refill normal Respiratory normal respiratory effort, lungs clear to auscultation + respiratory effort normal; no respiratory distress, no retractions and no uses accessory muscles + clear to auscultation bilaterally Pre-Sedation Airway Assessment Smoking Status: Never smoker Hx Sleep Apnea: No Short, Thick Neck: No Mallampati Class: II ASA: ASA3 NPO Status Date of Last Intake of Fluids: 05/18/22 Date of Last Intake of Solid Food: 05/18/22 Last Intake of Solids Comment: Procedure was felt to be emergent. N.p.o. status was discussed but ul Procedure Planning Contraindications for Sedation: none Current Medications Reviewed: Yes Notes The planned sedation has been discussed with the patient. Informed Consent was obtained. I have identified the patient, determined the appropriateness of sedation and have assessed the patient immediately prior to the procedure. All medicine(s) and interventions are by my order. : Chest pain Qualifiers: Chest pain type: unspecified Qualified Code(s): R07.9 - Chest pain, unspecified
--- NOTE | 2022-05-18 19:04 | Communication Note ---
Date of Service: May 18, 2022 Per patient request, I called his daughter, Netta and provided an update post unsuccessful cardioversion. Her phone number is [phone].
--- NOTE | 2022-05-18 19:42 | History & Physical Report ---
Date of Service May 18, 2022 Assessment & Plan (1) Atrial fibrillation with rapid ventricular response: (2) Chest pain: Plan: Patient is 67-year-old male with PMH paroxysmal atrial fibrillation anticoagulated on warfarin, CAD with multiple interventions, s/p CABG, stent, bifascicular heart block, dyslipidemia, CVA, CKD III, gout presented to ER with complaint of chest pain, exertional SOB x 1 week. Outpatient cardiology office today and found to be in atrial fibrillation RVR with rate 200 and was transported to ER via EMS. Patient denies any noted palpitations. In ER found to be in atrial fibrillation RVR with rate of 200. In ER Diltiazem bolus given without improvement. Cardiology consulted. Patient sedated and cardioverted x 3 without improvement. Metoprolol tartrate IV given, amiodarone bolus and drip started by cardiology Patients HR continues to be in 160's, SBP trended down to 80's then up to low 100's Cardiology on board. Discussion with Dr Chris Discussed with JAYSON Souza in ICU Will continue current treatment and monitor closely in PCU with low threshold to transfer to ICU if patient would decline NPO midnight Initial troponin: 59. Trend troponin Echo Metoprolol titrate every 6 hours p.o. started by cardiology. Will hold home metoprolol succinate INR: 4.6. Hold warfarin INR in am (3) CAD (coronary artery disease): Plan: Significant cardiac history with history multiple coronary interventions, stent, CABG, stent of vein graft Continue aspirin, isosorbide, Ranexa Reported intolerance to statins in the past (4) Right bundle branch block: (5) Bifascicular block: Plan: History chronic RBBB, left posterior fasicular block (6) Stroke: Plan: Continue aspirin (7) CKD (chronic kidney disease), stage III: Plan: Cr 1.6. Baseline ~1.3 (8) Gout: Plan: Continue allopurinol DVT Prophylaxis On warfarin. Currently supratherapeutic INR Fall code as per discussion with pt Follows with Dr Briggs for routine care Pt was seen and care coordinated with Dr Miner. See addendum History of Present Illness Chief Complaint: CP Primary Care Provider: Kuldeep Briggs MD Patient is 67-year-old male with PMH paroxysmal atrial fibrillation anticoagulated on warfarin, CAD with multiple interventions, s/p CABG, stent, bifascicular heart block, dyslipidemia, CVA, CKD III, gout presented to ER with complaint of chest pain. Patient has been having ongoing chest pain, exertional shortness of breath for the past week however worsening the past 2 days. Patient has been using nitro with limited relief. Patient presented to outpatient cardiology office today and found to be in atrial fibrillation RVR with rate 200 and was transported to ER via EMS. Patient denies any noted palpitations. Denies any increased edema. He reports he has been having bilateral leg aching and paresthesia sensation, worse to right leg. He was started on prednisone taper for leg pain without relief. Denies fever/chills, diaphoresis, N/V/D/C, GALAVIZ, dizziness, syncope, vision changes, neck pain, cough, sore throat, choking, otalgia, rhinorrhea, abdominal pain, extremity weakness, rashes, urinary symptoms. In ER found to be in atrial fibrillation RVR with rate of 200. Diltiazem bolus given without improvement. Cardiology consulted. Patient sedated and cardioverted x 3 without improvement. Metoprolol tartrate IV given, amiodarone bolus and drip started. Allergies Allergy/AdvReac Type Severity Reaction Status Date / Time No Known Drug Allergies Allergy Unknown NKDA Verified 01/03/20 14:53 Home Medications Medication Instructions Recorded Confirmed Type allopurinol 300 mg tablet 300 mg PO HS 10/19/18 05/18/22 History aspirin 81 mg tablet,delayed 81 mg PO QAM 10/19/18 05/18/22 History release isosorbide mononitrate 60 mg 90 mg PO QAM 10/19/18 05/18/22 History tablet,extended release 24 hr metoprolol succinate 50 mg 25 mg PO QAM 10/19/18 05/18/22 History tablet,extended release 24 hr nitroglycerin 0.4 mg sublingual 1 tab sublingual UD PRN Chest Pain 10/19/1804/30 History tablet ranolazine 500 mg tablet,extended 500 mg PO BID 10/19/18 05/18/22 History release,12 hr (Ranexa) trazodone 50 mg tablet 150 mg PO HS 10/19/18 05/18/22 History warfarin 5 mg tablet 5 mg PO UD 10/19/18 05/18/22 History warfarin 5 mg tablet 7.5 mg PO UD 01/03/20 05/18/22 History evolocumab 140 mg/mL subcutaneous 140 mg subcut . EVERY 14 DAYS 05/18/22 05/18/22 History pen injector (Woody Castro) latanoprost 0.005 % eye drops 1 drp OPL HS 05/18/22 05/18/22 History prednisone 10 mg tablet 10 mg PO UD 05/18/22 05/18/22 History Past Med/Surg History Medical History Atrial fibrillation DX 6-7 YEARS; ON WARFARIN; FOLLOWS W/ DR. MCCARTHY Bifascicular block CAD (coronary artery disease) Cardiac murmur A CHILD Chronic back pain CKD (chronic kidney disease), stage III Gout Hyperlipidemia Hypertension Osteoarthritis Poor historian Stroke EMBOLIC - 7 YEARS AGO - [facility] --> [place] - FOLLOWS W/ [facility] - CAUSE? 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 Surgical History History of cardiac cath MULTIPLE - [facility] - [place] - TOTAL OF 8 STENTS PLACED - MOST RECENT CATH APPROX 10 YEARS AGO History of cataract extraction with lens replacement [place]07[place] [facility] [place] History of colonoscopy W/ POLYPECTOMY History of coronary artery bypass graft APPROX 10 YEARS AGO - [facility] - FOLLOWS W/ DR. MCCARTHY Social History Smoking Status: Never smoker Cigarettes Per Day: 0; Second Hand Exposure: No; Hx Alcohol Use: No Hx Substance Use: No Preferred Language: Central [place] Communication Ability: Effective Inspecting Machine Adjuster Required: No Beliefs That Will Affect Care: None marital status: Current Living Situation: Alone Feels Safe at Home: Yes Safety Concerns: Feels Safe At This Time Assistive Devices: Cane Review of Systems Review of Systems: All systems reviewed & are unremarkable except as noted in HPI & below Physical Exam Physical Exam: General: mild distress, + ill appearing, WDWN Head: normocephalic, atraumatic Eyes: conjunctiva non-injected, anicteric ENT: normal inspection external ears, nose, mucous membranes moist Neck: supple, trachea midline Lungs: clear, no respiratory distress, no wheezing/rhonchi/rales CV: Irregularly irregular, rate 160, no pretibial edema Abd: normal BS, soft, non-tender Ext: no cyanosis, no calf tenderness Neuro: A&O x 3, no focal deficits noted, +anxious affect Skin: warm, dry Results & Data Results & Data ([facility]) Vital Signs (Past 12 Hours) Vital Signs Temp Pulse Resp BP Pulse Ox O2 Del Method O2 Flow Rate 05/18/22 18:47 169 H 28 H 95 05/18/22 18:47 84/68 L 05/18/22 18:45 163 H 25 H 91 05/18/22 18:41 91/71 L 05/18/22 18:41 141 H 26 H 05/18/22 18:31 176 H 25 H 98 05/18/22 18:31 122/44 L 05/18/22 18:30 163 H 22 98 05/18/22 18:27 93/69 L 05/18/22 18:27 164 H 21 91 05/18/22 18:21 196 H 22 93 05/18/22 18:21 80/66 L 05/18/22 18:19 110/74 05/18/22 18:19 147 H 30 H 99 05/18/22 18:15 178 H 30 H 92 05/18/22 18:14 181/147 H 05/18/22 18:14 154 H 28 H 91 05/18/22 18:09 166 H 16 96 05/18/22 18:09 90/71 L 05/18/22 18:07 101/51 L 05/18/22 18:07 173 H 25 H 94 05/18/22 18:04 89/70 L 05/18/22 18:04 167 H 24 96 05/18/22 18:02 83/65 L 05/18/22 18:02 192 H 17 96 05/18/22 18:00 175 H 26 H 95 05/18/22 18:00 94/72 L 05/18/22 17:59 102/69 05/18/22 17:59 155 H 20 95 05/18/22 17:56 102/72 05/18/22 17:56 153 H 21 96 05/18/22 17:53 183 H 30 H 94 05/18/22 17:53 93/70 L 05/18/22 17:50 102/70 05/18/22 17:50 195 H 20 95 05/18/22 17:47 167 H 22 98 05/18/22 17:47 108/70 05/18/22 17:45 126 H 17 97 05/18/22 17:43 176 H 21 97 05/18/22 17:43 123/79 05/18/22 17:41 195 H 20 97 05/18/22 17:41 98/76 L 05/18/22 17:31 170 H 20 98 05/18/22 17:31 115/89 05/18/22 17:30 174 H 20 98 05/18/22 17:22 122/88 05/18/22 17:22 167 H 24 93 05/18/22 17:15 203 H 24 92 05/18/22 17:11 203 H 23 92 05/18/22 17:11 117/89 05/18/22 16:57 Room Air 2 05/18/22 16:30 37.1 C 193 H 20 132/75 94 Room Air 05/18/22 16:45 205 H 24 118/88 97 05/18/22 16:43 190 H 25 H 133/114 H 97 Laboratory Results Short CBC 05/18/22 Range/Units 16:20 WBC 10.68 (4.8-10.8) K/ul Hgb 14.3 (14.0-18.0) g/dl Hct 44.0 (40.1-51.0) % Plt Count 204 (130-400) K/uL BMP 05/18/22 16:20 Sodium 140 Potassium 4.5 Chloride 104 Carbon Dioxide 29 BUN 38 H Creatinine 1.62 H Glucose 99 Calcium 9.4 Liver Function 05/18/22 Range/Units 16:20 Total Bilirubin 1.8 H (0.2-1.0) mg/dl AST 104 H (13-39) U/L ALT 162 H (7-52) U/L Alkaline Phosphatase 83 (34-104) U/L Albumin 3.9 (3.4-5.0) gm/dl Diagnostic Findings Chest X-Ray 05/18/22 16:24 XR chest 1V portable HISTORY: 67 years-old Male weakness acute weakness COMPARISON: Chest radiograph 07/14/2010 TECHNIQUE: AP view of the chest FINDINGS: Cardiac silhouette is enlarged. Prior median sternotomy. Pulmonary vascular congestion with interstitial coarsening and ill-defined bilateral airspace opacities. No pneumothorax or large pleural effusion. Degenerative changes of the shoulders and spine. Healed mid left clavicular fracture deformity. 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 Pneumonia could appear similarly. ACT 112: Negative or not required by law. The above report was generated using voice recognition software. It may contain grammatical, syntax or spelling errors. Electronically signed by: Stone Snow M.D. 05/18/2022 5:35 PM ECG Rate (beats per minute): 193 Rhythm: atrial fibrillation Findings: + RBBB Code Status & VTE Plan VTE Prophylaxis Plan VTE Prophylaxis will be ordered: Yes Supervising Physician Co-Signing Physician Notes I have seen and examined the patient and have discussed the case with the provider above. I agree with the assessment and plan as stated. 67-year-old man presents with chest pain. Complex cardiac history present and anginal type picture worsening over the past 2 days. Patient's been using nitroglycerin with limited relief. History as above with unsuccessful cardioversion this evening. Per cardiology he is on amiodarone infusion with plans to cardiovert in a.m. if without improvement. On physical exam patient is anxious reporting chest pain and slightly hypoxic. He is not working to breathe. He will continue on metoprolol overnight. Notably INR is 4.6. Warfarin will be held as this is supratherapeutic. DO Kristofer (1) Chest pain Chest pain type: unspecified Qualified Code(s): R07.9 - Chest pain, unspecified
[2022-05-18] MEDS ORDERED: ACETAMINOPHEN 325 MG TAB PO PRN (20:37)
[2022-05-18] MEDS ORDERED: POLYETHYLENE (MIRALAX) 17 GM PACK PO PRN (20:37)
--- NOTE | 2022-05-18 20:45 | Communication Note ---
Date of Service: May 18, 2022 67-year-old man with history of CABG and atrial fibrillation on Coumadin. Presented with 1 week of chest pain and shortness of breath. He has been using nitroglycerin regularly to help with symptoms. Found to be in atrial fibrillation with rapid ventricular response. Cardioverted 3 times with no success. Amiodarone started and running. He was also given diltiazem 10 mg IV, then 20 mg IV with no improvement in heart rate. After cardioversion he was given Lopressor 10 mg IV. Heart rate is still in the 140-160 bpm range and he has chest pain and shortness of breath, on a small amount of supplemental oxygen. He is mentating well and also reports numbness in both legs for the past week. Reports low appetite but no nausea vomiting diarrhea or other symptoms. He reports getting sleep at night and uses trazodone to help with this. Review of systems also reveals darker color in his stools. Physical exam reveals a patient in mild distress who appears anxious. Lungs are clear to auscultation. Heart sounds are distant, tachy and irregular. S1 and S2 is muffled and difficult to discern. Abdomen is soft, NTND, There is no peripheral edema. Workup in the ER includes Normal CBC, INR 4.6, BMP reveals normal sodium and potassium with a mild elevation in kidney function including BUN 38 and creatinine 1.62. Baseline creatinine is 1.3. AST and ALT are also mildly elevated at 104 and 162 respectively. Highly sensitive troponin is elevated at 59.4. TSH is within normal limits and he is COVID-negative. Chest x-ray reveals cardiomegaly with pulmonary vascular congestion consistent with pulmonary edema. Plan will be to monitor patient very closely in the PCU as blood pressure is borderline and he is still hemodynamically unstable. We will continue amiodarone drip and continue metoprolol every 6 hours. If his pressure drops again, we will cautiously give fluids, however, pressor support another reasonable option. Cardiology is very involved with this patient already and will be closely following. ICU has been made aware of his clinical status and still has the mill order scheduler. Patient and his son are fine with the plan currently. We will monitor CBC with dark stools reported and a supratherapeutic INR. We will continue to hold warfarin until INR trends down on its own. Additional treatment per cardiology. DO Nellie Yuen hospitalist
[2022-05-18] MEDS ORDERED: METOPROLOL TARTRATE 25 MG TAB PO SCH (21:00)
[2022-05-18] MEDS ORDERED: traZODone HCL 50 MG TAB PO SCH (21:00)
[2022-05-18] MEDS: traZODone HCL 100 MG TAB PO SCH (22:07)
[2022-05-18] MEDS: RANOLAZINE 500 MG ER TAB PO SCH (22:07)
[2022-05-18] MEDS: METOPROLOL TARTRATE 25 MG TAB PO SCH (22:08)
[2022-05-18] MEDS: LATANOPROST 0.005% OP SOLN 2.5 ML BTL OPL SCH (22:08)
[2022-05-18] MEDS ORDERED: HYDROmorphone INJ 0.5 MG/0.5 ML SYR IV PRN (22:16)
[2022-05-18] MEDS ORDERED: traMADol HCL 50 MG TABLET PO PRN (22:16)
[2022-05-18] MEDS ORDERED: DIGOXIN 250 MCG in SYRINGE 9 ML IV ONE (22:30)
[2022-05-19] MEDS: AMIODARONE / D5W 360 MG/200 ML BAG IV SCH ×3 (00:57→23:34)
[2022-05-19] MEDS: METOPROLOL TARTRATE 25 MG TAB PO SCH ×3 (04:57→17:42)
[2022-05-19 05:22] LABS: Hematocrit (blood only) 40.5 % (40.1-51.0); Hemoglobin 13.4 g/dl (14.0-18.0); Mean Corpuscular Hemoglobin 31.4 pg (25.0-34.0); Mean Corpuscular Hgb Conc 33.1 g/dL (32.0-36.0); Mean Corpuscular Volume 94.8 fL (80.0-100.0); Mean Platelet Volume 11.1 fL (9.4-12.4); Nucleated RBC # (auto) 0.02 K/uL (0-0); Nucleated RBC % (auto) 0.2 %; Platelet Count 195 K/uL (130-400); RDW Coefficient of Variation 13.9 % (11.5-14.5); RDW Standard Deviation 46.9 fL (36.4-46.3); Red Blood Count 4.27 M/uL (4.63-6.08)
[2022-05-19 05:46] LABS: INR 3.8 (0.9-1.1); Prothrombin Time 37.9 Seconds (9.0-12.0)
[2022-05-19 05:49] LABS: Albumin Globulin Ratio 1.2 (0.9-2); Albumin Level 3.3 gm/dl (3.4-5.0); BUN Creatinine Ratio 25.8 (10-20); Bilirubin,Total 1.4 mg/dl (0.2-1.0); Calcium 8.6 mg/dl (8.5-10.1); Creatinine Clr Calc Pharmacy 53.3 ml/min; Est GFR (African American) 64.7 ml/min; Est GFR (Non-African American) 55.8 ml/min; Globulin 2.8 gm/dl (2.5-4.0); Potassium 4.4 mmol/L (3.5-5.1); Total Protein 6.1 gm/dl (6.0-8.3)
[2022-05-19] MEDS: ASPIRIN 81 MG ECTAB PO SCH (08:00)
[2022-05-19] MEDS: ISOSORBIDE MONO EXTENDED REL 30 MG TABCR PO SCH (08:00)
[2022-05-19] MEDS: RANOLAZINE 500 MG ER TAB PO SCH ×2 (08:00→20:00)
--- NOTE | 2022-05-19 09:15 | Cardiology Progress Note ---
Date of Service May 19, 2022 Assessment & Plan (1) Atrial fibrillation with rapid ventricular response: (2) Bifascicular block: (3) CAD (coronary artery disease): (4) Left ventricular systolic dysfunction: Plan: Echocardiogram performed this morning, reviewed independently, reveals moderate to severe left atrial enlargement, severe global left ventricular hypokinesis, LVEF 25%, down from 50 to 54% in 2020. As noted, patient with going highly symptomatic, extremely rapid atrial fibrillation. Patient has been on amiodarone infusion for about 12 hours. INR improved from 4.6 to 3.8 . Creatinine improved from 1.62 to 1.32. ALT / AST still mildly elevated but trending down. Mild elevation in HS troponin likely due to underlying CAD, LV dysfunction, tachycardia, as I do not think pt's presentation suggest and acute intracoronary thrombotic event. Proceed with another trial of cardioversion today. Remain NPO. Admission and Anticipated Discharge Date Admission Date: May 18, 2022 Subjective Patient seen in cardiology follow up. Had intermittent angina overnight. Amiodarone infusing. Remains in atrial fibrillation with rapid ventricular response with resting ventricular rates in the range of 160s to 190s, mostly 180s and 190s. Most recent dose of oral metoprolol tartrate was administered at 5 am. Review of Systems Review of Systems: All systems reviewed & are unremarkable except as noted in HPI & below Physical Exam Physical Exam: Temp Pulse Resp BP Pulse Ox O2 Del Method O2 Flow Rate 36.4 C L 157 H 28 H 119/88 96 2 05/19/22 07:52 05/19/22 08:49 05/19/22 08:00 05/19/22 07:31 05/19/22 08:00 05/19/22 07:42 05/19/22 07:42 Constitutional: WD/WN, vitals as above Respiratory: normal respiratory effort, lungs clear to auscultation Cardiovascular: Rate/Rhythm: + tachycardic Heart Sounds: no murmur Extremities: no edema Gastrointestinal (Abdomen): normal bowel sounds, soft, nontender, no hepatosplenomegaly Neurologic: PERRL, EOMI, accommodation nl, no face palsy, no dysarthria Results & Data ([facility]) Laboratory Results Cardiac Enzymes 05/18/22 05/18/22 05/19/22 Range/Units 16:20 22:14 04:44 AST 104 H (13-39) U/L Troponin I High Sens 59.4 H* 43.3 H D 47.9 H (0-20) pg/ml 05/19/22 Range/Units 04:44 AST 52 H (13-39) U/L Troponin I High Sens (0-20) pg/ml Coagulation 05/18/22 05/19/22 Range/Units 16:20 04:44 PT 44.7 H 37.9 H (9.0-12.0) Seconds APTT 46.7 H* (21.0-31.0) Seconds CBC 05/18/22 05/19/22 Range/Units 16:20 04:44 WBC 10.68 10.60 (4.8-10.8) K/ul RBC 4.57 L 4.27 L (4.63-6.08) M/uL Hgb 14.3 13.4 L (14.0-18.0) g/dl Hct 44.0 40.5 (40.1-51.0) % Plt Count 204 195 (130-400) K/uL Neut # (Auto) 7.41 H (1.4-6.5) K/uL Lymph # (Auto) 1.83 (1.2-3.4) K/uL Osborne # (Auto) 1.21 H (0.24-0.82) K/uL Eos # (Auto) 0.11 (0-0.50) K/uL Baso # (Auto) 0.02 (0-0.2) K/uL Comprehensive Metabolic Panel 05/18/22 05/19/22 Range/Units 16:20 04:44 Sodium 140 139 (136-145) mmol/L Potassium 4.5 4.4 (3.5-5.1) mmol/L Chloride 104 107 (98-107) mmol/L Carbon Dioxide 29 25 (21-32) mmol/L BUN 38 H 34 H (6-23) mg/dl Creatinine 1.62 H 1.32 D (0.6-1.4) mg/dl Glucose 99 97 (70-99(Fasting)) mg/dl Calcium 9.4 8.6 (8.5-10.1) mg/dl AST 104 H 52 H (13-39) U/L ALT 162 H 128 H (7-52) U/L Alkaline Phosphatase 83 64 (34-104) U/L Total Protein 6.9 6.1 (6.0-8.3) gm/dl Albumin 3.9 3.3 L (3.4-5.0) gm/dl Intake and Output 05/18/22 05/19/22 05/19/22 22:59 06:59 14:59 Intake Total 500 / 800 300 / 800 Output Total 200 / 525 325 / 525 Balance 300 / 275 -25 / 275 Intake: IV 500 / 800 300 / 800 Amiodarone / D5w 150 mg In 100 100 / 100 ml @ 600 mls/hr IV NOW STA Rx#: [id number] Amiodarone / D5w 360 mg In 200 200 / 200 ml @ 1 MG/MIN 33.333 mls/hr IV ONE ONE Rx#:[id number] Sodium Chloride 0.9% 500 ml @ 500 / 500 999 mls/hr IV .Q31M [facility] Rx#: [id number] Output: Urine 200 / 525 325 / 525 Other: Weight 78.5 kg Weight Measurement Method Built in [facility]
--- NOTE | 2022-05-19 09:27 | Electrocardiogram Report ---
Test Reason : Blood Pressure : / mmHG Vent. Rate : 193 BPM Atrial Rate : 127 BPM P-R Int : 000 ms QRS Dur : 128 ms QT Int : 302 ms P-R-T Axes : 000 085 012 degrees QTc Int : 541 ms Atrial fibrillation with rapid ventricular response Right bundle branch block Abnormal ECG When compared with ECG of 14-JUL-2010 11:25, Atrial fibrillation has replaced Sinus rhythm Vent. rate has increased BY 144 BPM Right bundle branch block has replaced Incomplete right bundle branch block Confirmed by Fili Talamantes ([id number]) on 05/19/2022 9:27:15 AM Referred By: REFERRED SELF Confirmed By:Fili Talamantes
--- NOTE | 2022-05-19 12:20 | Anesthesiology Consultation ---
Date of Service May 19, 2022 Assessment & Plan (1) Encounter for pre-operative examination: Chart Review Chart Review: Acceptable Risk for Surgery and Patient NOT seen in Pre Admission Testing Consults Requested none History Surgery Operation Date: 05/19/22 13:00 Proposed Procedures p Cardioversion - Ish Chris DO Height/Weight Height: 5 ft 8 in Weight: 78.5 kg Allergies Allergy/AdvReac Type Severity Reaction Status Date / Time No Known Drug Allergies Allergy Unknown NKDA Verified 01/03/20 14:53 Medications Home Medications Medication Instructions Recorded Confirmed Last Taken allopurinol 300 mg tablet 300 mg PO HS 10/19/18 05/18/22 01/02/20 aspirin 81 mg tablet,delayed 81 mg PO QAM 10/19/18 05/18/22 01/03/20 release isosorbide mononitrate 60 mg 90 mg PO QAM 10/19/18 05/18/22 05/18/22 tablet,extended release 24 hr metoprolol succinate 50 mg 25 mg PO QAM 10/19/18 05/18/22 05/18/22 tablet,extended release 24 hr nitroglycerin 0.4 mg sublingual 1 tab sublingual UD PRN Chest Pain 10/19/18 05/18/22 Unknown tablet ranolazine 500 mg tablet,extended 500 mg PO BID 10/19/18 05/18/22 01/03/20 release,12 hr (Ranexa) trazodone 50 mg tablet 150 mg PO HS 10/19/18 05/18/22 05/17/22 warfarin 5 mg tablet 5 mg PO UD 10/19/18 05/18/22 01/02/20 warfarin 5 mg tablet 7.5 mg PO UD 01/03/20 05/18/22 01/01/20 evolocumab 140 mg/mL subcutaneous 140 mg subcut . EVERY 14 DAYS 05/18/22 05/18/22 Unknown pen injector (Woody Castro) latanoprost 0.005 % eye drops 1 drp OPL 05/18/22 05/18/22 Unknown prednisone 10 mg tablet 10 mg PO UD 05/18/22 05/18/22 Unknown Active Medications Generic Name Dose Route Start Last Admin Trade Name Freq PRN Reason Stop Dose Admin Acetaminophen 650 mg 05/18/22 20:37 05/19/22 08:00 Acetaminophen 325 Mg Tab PO 06/17/22 20:36 650 mg Q4H PRN Administration Pain or Fever Aspirin 81 mg 05/19/22 09:00 05/19/22 08:00 Aspirin 81 Mg Ectab PO 06/18/22 08:59 81 mg QAM RAJ Administration Amiodarone HCl/Dextrose 360 mg in 200 mls @ 16.667 mls/hr 05/18/22 23:45 05/19/22 11:50 Nexterone / D5w IV 06/17/22 23:44 0.5 mg/min .Q12H RAJ 16.7 mls/hr Administration 0.5 MG/MIN Isosorbide Mononitrate 90 mg 05/19/22 09:00 05/19/22 08:00 Isosorbide [place] Extended Rel 30 Mg Tabcr PO 06/18/22 08:59 90 mg QAM RAJ Administration Latanoprost 1 drops 05/18/22 21:00 05/18/22 22:08 Latanoprost 0.005% Op Soln 2.5 Ml Btl OPL 06/17/22 20:59 1 drops HS RAJ Administration Metoprolol Tartrate 25 mg 05/18/22 21:30 05/19/22 11:52 Metoprolol Tartrate 25 Mg Tab PO 06/17/22 21:29 25 mg Q6 RAJ Administration Ranolazine 500 mg 05/18/22 21:00 05/19/22 08:00 Ranolazine 500 Mg Er Tab PO 06/17/22 20:59 500 mg BID RAJ Administration Trazodone HCl 100 mg 05/18/22 21:00 05/18/22 22:07 Trazodone Hcl 100 Mg Tab PO 06/17/22 20:59 100 mg HS RAJ Administration Past Medical History Medical History Atrial fibrillation DX 6-7 YEARS; ON WARFARIN; FOLLOWS W/ DR. MCCARTHY Bifascicular block CAD (coronary artery disease) Cardiac murmur A CHILD Chronic back pain CKD (chronic kidney disease), stage III Gout Hyperlipidemia Hypertension Osteoarthritis Poor historian Stroke EMBOLIC - [address] A[address] - [facility] --> [place] - FOLLOWS W/ [facility] - CAUSE? 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 Past Surgical History Surgical History History of cardiac cath MULTIPLE - [facility] - CP - TOTAL OF 8 STENTS PLACED - MOST RECENT CATH APPROX 10 YEARS AGO History of cataract extraction with lens replacement 11/07/18 [facility] [place] History of colonoscopy W/ POLYPECTOMY History of coronary artery bypass graft APPROX 10 YEARS AGO - [facility] - FOLLOWS W/ DR. MCCARTHY Social History Smoking Status: Never smoker Smoking cigarettes per day: 0 Hx Alcohol Use: No Alcohol type: beer alcohol intake frequency: holidays/special occasions only Hx Substance Use: No substance use type: does not use Physical Exam Vital Signs Last Vital Signs Temp 97.9 F 05/19/22 12:15 Pulse 170 H 05/19/22 11:32 Resp 21 05/19/22 11:32 BP 109/81 05/19/22 11:32 Pulse Ox 92 05/19/22 11:32 O2 Del Method 05/19/22 07:42 O2 Flow Rate 2 05/19/22 07:42 Testing Laboratory Results 05/19/22 04:44 05/19/22 04:44 PT 37.9 Seconds (9.0-12.0) H 05/19/22 04:44 INR 3.8 (0.9-1.1) H 05/19/22 04:44 APTT 46.7 Seconds (21.0-31.0) H* 05/18/22 16:20 Electrocardiogram Date: 05/18/22 Findings: + AFIB @ (with RVR)
[2022-05-19] MEDS ORDERED: PROPOFOL IV EMULSION 10 MG/ML 20 ML VIAL IV ONE (12:51)
--- NOTE | 2022-05-19 13:22 | Anesthesiology Progress Note ---
Date of Service May 19, 2022 Anesthesia Post Procedure Vital Signs Vital Signs: Temp Pulse Pulse Resp BP BP Pulse Ox 05/19/22 12:30 167 H 30 H 96 05/19/22 12:30 111/72 05/19/22 12:01 119/80 05/19/22 12:01 158 H 34 H 96 05/19/22 12:00 153 H 32 H 98 05/19/22 12:15 97.9 F 05/19/22 11:32 170 H 21 92 05/19/22 11:32 109/81 05/19/22 11:00 154 H 35 H 97 05/19/22 11:00 106/89 05/19/22 10:30 125/83 05/19/22 10:30 157 H 35 H 96 05/19/22 10:00 160 H 24 95 05/19/22 10:00 111/83 05/19/22 09:30 104/70 05/19/22 09:30 164 H 27 H 95 05/19/22 09:00 155 H 30 H 95 05/19/22 08:49 157 H 05/19/22 08:00 169 H 28 H 96 05/19/22 07:31 119/88 05/19/22 07:31 139 H 35 H 96 05/19/22 07:00 163 H 32 H 98 05/19/22 07:52 97.5 F L 05/19/22 07:42 05/19/22 04:30 117/81 05/19/22 04:30 147 H 27 H 97 05/19/22 04:01 93/74 L 05/19/22 04:01 166 H 21 93 05/19/22 04:00 179 H 20 97 05/19/22 03:30 113/83 05/19/22 03:30 157 H 21 97 05/19/22 03:01 121/83 05/19/22 03:01 97.9 F 162 H 30 H 117/81 96 05/19/22 03:00 159 H 29 H 97 05/19/22 02:00 162 H 24 97 05/19/22 02:00 97/70 L 05/19/22 01:30 155 H 21 96 05/19/22 01:30 104/70 05/19/22 01:00 157 H 17 97 10/20/22 00:31 122/81 05/19/22 00:31 173 H 27 H 96 05/19/22 00:00 146 H 23 96 05/19/22 00:00 102/84 05/18/22 23:00 161 H 20 98 05/18/22 23:00 110/77 05/18/22 22:30 169 H 28 H 91 05/18/22 22:30 114/80 05/19/22 01:30 166 H 05/18/22 22:37 172 H 05/18/22 22:36 169 H 34 H 114/80 91 05/18/22 20:37 05/18/22 21:19 05/18/22 20:38 98.2 F 169 H 22 99/84 L 98 05/18/22 20:30 169 H 31 H 97 05/18/22 20:28 176 H 25 H 05/18/22 20:28 98/47 L 05/18/22 20:13 103/62 05/18/22 20:11 99 05/18/22 20:10 167 H 21 98 05/18/22 20:01 75/57 L 05/18/22 20:01 160 H 24 97 05/18/22 20:00 159 H 27 H 100 05/18/22 19:45 174 H 24 100 05/18/22 19:45 110/71 05/18/22 19:30 153 H 29 H 96 05/18/22 19:30 104/75 05/18/22 19:16 106/73 05/18/22 19:16 167 H 28 H 95 05/18/22 19:15 160 H 19 99 05/18/22 19:00 148 H 27 H 96 05/18/22 18:47 169 H 28 H 95 05/18/22 18:47 84/68 L 05/18/22 18:45 163 H 25 H 91 05/18/22 18:41 91/71 L 05/18/22 18:41 141 H 26 H 05/18/22 18:31 176 H 25 H 98 05/18/22 18:31 122/44 L 05/18/22 18:30 163 H 22 98 05/18/22 18:27 93/69 L 05/18/22 18:27 164 H 21 91 05/18/22 18:21 196 H 22 93 05/18/22 18:21 80/66 L 05/18/22 18:19 110/74 05/18/22 18:19 147 H 30 H 99 05/18/22 18:15 178 H 30 H 92 05/18/22 18:14 181/147 H 05/18/22 18:14 154 H 28 H 91 05/18/22 18:09 166 H 16 96 05/18/22 18:09 90/71 L 05/18/22 18:07 101/51 L 05/18/22 18:07 173 H 25 H 94 05/18/22 18:04 89/70 L 05/18/22 18:04 167 H 24 96 05/18/22 18:02 83/65 L 05/18/22 18:02 192 H 17 96 05/18/22 18:00 175 H 26 H 95 05/18/22 18:00 94/72 L 05/18/22 17:59 102/69 05/18/22 17:59 155 H 20 95 05/18/22 17:56 102/72 05/18/22 17:56 153 H 21 96 05/18/22 17:53 183 H 30 H 94 05/18/22 17:53 93/70 L 05/18/22 17:50 102/70 05/18/22 17:50 195 H 20 95 05/18/22 17:47 167 H 22 98 05/18/22 17:47 108/70 05/18/22 17:45 126 H 17 97 05/18/22 17:43 176 H 21 97 05/18/22 17:43 123/79 05/18/22 17:41 195 H 20 97 05/18/22 17:41 98/76 L 05/18/22 17:31 170 H 20 98 05/18/22 17:31 115/89 05/18/22 17:30 174 H 20 98 05/18/22 17:22 122/88 05/18/22 17:22 167 H 24 93 05/18/22 17:15 203 H 24 92 05/18/22 17:11 203 H 23 92 05/18/22 17:11 117/89 05/18/22 16:57 05/18/22 16:30 98.8 F 193 H 20 132/75 94 05/18/22 16:45 205 H 24 118/88 97 05/18/22 16:43 190 H 25 H 133/114 H 97 Pulse Ox O2 Del Method O2 Del Method O2 Flow Rate O2 Flow Rate 05/19/22 12:30 05/19/22 12:30 05/19/22 12:01 05/19/22 12:01 05/19/22 12:00 05/19/22 12:15 05/19/22 11:32 05/19/22 11:32 05/19/22 11:00 05/19/22 11:00 05/19/22 10:30 05/19/22 10:30 05/19/22 10:00 05/19/22 10:00 05/19/22 09:30 05/19/22 09:30 05/19/22 09:00 05/19/22 08:49 05/19/22 08:00 05/19/22 07:31 05/19/22 07:31 05/19/22 07:00 05/19/22 07:52 05/19/22 07:42 Nasal Cannula 2 05/19/22 04:30 05/19/22 04:30 05/19/22 04:01 05/19/22 04:01 05/19/22 04:00 05/19/22 03:30 05/19/22 03:30 05/19/22 03:01 05/19/22 03:01 05/19/22 03:00 05/19/22 02:00 05/19/22 02:00 05/19/22 01:30 05/19/22 01:30 05/19/22 01:00 05/19/22 00:31 05/19/22 00:31 05/19/22 00:00 05/19/22 00:00 05/18/22 23:00 05/18/22 23:00 05/18/22 22:30 05/18/22 22:30 05/19/22 01:30 05/18/22 22:37 05/18/22 22:36 Nasal Cannula 2 05/18/22 20:37 95 Nasal Cannula 2 05/18/22 21:19 Nasal Cannula 2 05/18/22 20:38 Nasal Cannula 2 05/18/22 20:30 05/18/22 20:28 05/18/22 20:28 05/18/22 20:13 05/18/22 20:11 05/18/22 20:10 05/18/22 20:01 05/18/22 20:01 05/18/22 20:00 05/18/22 19:45 05/18/22 19:45 05/18/22 19:30 05/18/22 19:30 05/18/22 19:16 05/18/22 19:16 05/18/22 19:15 05/18/22 19:00 05/18/22 18:47 05/18/22 18:47 05/18/22 18:45 05/18/22 18:41 05/18/22 18:41 05/18/22 18:31 05/18/22 18:31 05/18/22 18:30 05/18/22 18:27 05/18/22 18:27 05/18/22 18:21 05/18/22 18:21 05/18/22 18:19 05/18/22 18:19 05/18/22 18:15 05/18/22 18:14 05/18/22 18:14 05/18/22 18:09 05/18/22 18:09 05/18/22 18:07 05/18/22 18:07 05/18/22 18:04 05/18/22 18:04 05/18/22 18:02 05/18/22 18:02 05/18/22 18:00 05/18/22 18:00 05/18/22 17:59 05/18/22 17:59 05/18/22 17:56 05/18/22 17:56 05/18/22 17:53 05/18/22 17:53 05/18/22 17:50 05/18/22 17:50 05/18/22 17:47 05/18/22 17:47 05/18/22 17:45 05/18/22 17:43 05/18/22 17:43 05/18/22 17:41 05/18/22 17:41 05/18/22 17:31 05/18/22 17:31 05/18/22 17:30 05/18/22 17:22 05/18/22 17:22 05/18/22 17:15 05/18/22 17:11 05/18/22 17:11 05/18/22 16:57 Room Air 2 05/18/22 16:30 Room Air 05/18/22 16:45 05/18/22 16:43 Pain Intensity Medial Chest: Pain Intensity: 4 Transfer of Care Handoff Completed per policy Notes Mental Status: alert / awake / arousable and participated in evaluation Patient Amnestic to Procedure: Yes Nausea / Vomiting: adequately controlled Pain: adequately controlled Airway Patency, RR, SpO2: stable & adequate BP & HR: stable & adequate Hydration State: stable & adequate Anesthetic Complications: no major complications apparent and Pt Satisfied with anesthetic care
--- NOTE | 2022-05-19 13:47 | Cardioversion ---
Date of Service May 19, 2022 Electrical Cardioversion Rpt Electrical Cardioversion Report May 19, 2022 Pre & Post Diagnosis Operation Date: 05/19/22 13:00 Preprocedure diagnosis: Highly symptomatic atrial fibrillation with rapid ventricular response Post procedure diagnosis: Successful conversion to sinus rhythm Procedure Direct-current cardioversion procedure note: After informed consent was obtained and a timeout was performed the patient was sedated with the assistance of the anesthesia service receiving a total of 70 mg of IV propofol. The patient underwent direct-current cardioversion receiving a single dose of 250 J biphasic energy with successful conversion to sinus rhythm. Post procedure EKG performed 05/19/2022 at 13: 14 and reviewed independently r evealed sinus bradycardia with sinus arrhythmia at 57 bpm with right bundle branch block, age-indeterminate septal infarction pattern, [place] interval 130 ms, QRS duration 122 ms. Induction Brazer Ish Chris DO [employer] Umpire Roseanne Sears RN Estimated Blood Loss 0 Findings as noted above. Anesthesia Type MAC Complications none
--- NOTE | 2022-05-19 13:48 | Communication Note ---
Date of Service: May 19, 2022 Updated patient's children, daughter, Netta, son, Mane, with regards to successful cardioversion procedure. Continue IV amiodarone load. Advance diet.
[2022-05-19 14:33] LABS: INR 3.3 (0.9-1.1); Prothrombin Time 33.2 Seconds (9.0-12.0)
--- NOTE | 2022-05-19 15:39 | Hospitalist Progress Note ---
Date of Service May 19, 2022 Assessment & Plan (1) Atrial fibrillation with rapid ventricular response: (2) Chest pain: Plan: Patient is a 67-yr male with H/O Paroxysmal atrial fibrillation anticoagulated on warfarin, CAD with multiple interventions, s/p CABG, stent, bifascicular heart block, dyslipidemia, CVA, CKD III, gout presented to ER with complaint of chest pain, exertional SOB x 1 week. Outpatient cardiology office today and found to be in atrial fibrillation RVR with rate 200 and was transported to ER via EMS. Patient denies any noted palpitations. Atrial fibrillation with rapid ventricular response Bifascicular block Left ventricular systolic dysfunction: likely due to above Mild elevation of troponin--demand ischemia secondary to tachycardia, renal dysfunction Hypoxia secondary to pulmonary edema S/P successful Cardioversion -CXR:Cardiomegaly with pulmonary vascular congestion and mixed interstitial and alveolar opacities, likely wireless sales representative of pulmonary edema. Pneumonia could appear similarly. -ECHO: Atrial fibrillation with rapid ventricle response present during echocardiogram. Left atrium is dilated to moderate to severe degree. Severe global hypokinesis of left ventricle. Left ventricle systolic function is severely reduced. EF 35%. -Continue amiodarone, metoprolol INR therapeutic Hold Coumadin today Appreciate cardiology input (3) CAD (coronary artery disease): Plan: H/O multiple coronary interventions, stent, CABG, stent of vein graft Continue aspirin, isosorbide, Ranexa Reported intolerance to statins in the past (4) Right bundle branch block: (5) Bifascicular block: Plan: History chronic RBBB, left posterior fasicular block (6) Stroke: Plan: Continue aspirin (7) CKD (chronic kidney disease), stage III: Plan: ZEB on CKD III Cr 1.6>>1.3 Monitor renal function (8) Gout: Plan: Continue allopurinol Transaminitis Likely secondary to hepatic congestion LFTs trending down Monitor DVT Px: Supratherapeutic INR Resume Coumadin as able Code Status Fall code Admission and Anticipated Discharge Date Admission Date: May 18, 2022 Subjective Patient is seen and examined at bedside States having intermittent chest discomfort Tachycardic on monitor Also reports dyspnea on minimal exertion Reports nausea but no vomiting Offers no other complaint Discussed with cardiology today Review of Systems Review of Systems: All systems reviewed & are unremarkable except as noted in Subjective Physical Exam Physical Exam: Physical Exam: Vitals signs as noted above General Appearance:Moderately built and nourished, no apparent distress Head: normocephalic, Atraumatic Eyes: normal inspection, EOMI Neck: supple, Trachea midline Respiratory/Chest: Normal breath sounds, CTA, No accessory muscle use Cardiovascular: Irregularly irregular, tachycardia, No murmur Abdomen/GI:Soft, Non tender, Bowel sounds present Extremities/Musculoskeletal:normal inspection, no edema Neurologic/Psych:AAOX3, grossly no focal neurological deficits Skin: normal color, warm Results & Data Results & Data ([facility]) Vital Signs (Past 12 Hours) Vital Signs Temp Pulse Resp BP Pulse Ox O2 Del Method O2 Flow Rate 05/19/22 13:43 104/77 05/19/22 13:42 60 19 98 05/19/22 13:40 57 L 22 98 05/19/22 13:40 113/82 05/19/22 13:38 59 L 22 98 05/19/22 13:38 112/83 05/19/22 13:35 58 L 23 98 05/19/22 13:35 112/82 05/19/22 13:33 56 L 25 H 99 05/19/22 13:33 106/80 05/19/22 13:30 55 L 26 H 98 05/19/22 13:30 109/77 05/19/22 13:27 103/74 05/19/22 13:27 55 L 19 98 05/19/22 13:25 57 L 20 98 05/19/22 13:25 102/73 05/19/22 13:23 58 L 20 98 05/19/22 13:23 98/70 L 05/19/22 13:20 55 L 21 98 05/19/22 13:20 96/68 L 05/19/22 13:18 55 L 19 97 05/19/22 13:18 98/70 L 05/19/22 13:15 59 L 18 98 05/19/22 13:15 111/77 05/19/22 13:13 58 L 23 98 05/19/22 13:13 116/85 05/19/22 13:11 110/77 05/19/22 13:11 68 4 L 98 05/19/22 13:08 135 H 39 H 95 05/19/22 13:08 94/68 L 05/19/22 13:00 137 H 0 L 98 05/19/22 13:00 105/65 05/19/22 12:45 160 H 26 H 99 05/19/22 13:23 55 L 05/19/22 12:30 167 H 30 H 96 05/19/22 12:30 111/72 05/19/22 12:01 119/80 05/19/22 12:01 158 H 34 H 96 05/19/22 12:00 153 H 32 H 98 05/19/22 12:15 36.6 C 05/19/22 11:32 170 H 21 92 05/19/22 11:32 109/81 05/19/22 11:00 154 H 35 H 97 05/19/22 11:00 106/89 05/19/22 10:30 125/83 05/19/22 10:30 157 H 35 H 96 05/19/22 10:00 160 H 24 95 05/19/22 10:00 111/83 05/19/22 09:30 104/70 05/19/22 09:30 164 H 27 H 95 05/19/22 09:00 155 H 30 H 95 05/19/22 08:49 157 H 05/19/22 08:00 169 H 28 H 96 05/19/22 07:31 119/88 05/19/22 07:31 139 H 35 H 96 05/19/22 07:00 163 H 32 H 98 05/19/22 07:52 36.4 C L 05/19/22 07:42 Nasal Cannula 2 05/19/22 04:30 117/81 05/19/22 04:30 147 H 27 H 97 05/19/22 04:01 93/74 L 05/19/22 04:01 166 H 21 93 05/19/22 04:00 179 H 20 97 05/19/22 03:30 113/83 05/19/22 03:30 157 H 21 97 Laboratory Results Short CBC 05/18/22 05/19/22 Range/Units 16:20 04:44 WBC 10.68 10.60 (4.8-10.8) K/ul Hgb 14.3 13.4 L (14.0-18.0) g/dl Hct 44.0 40.5 (40.1-51.0) % Plt Count 204 195 (130-400) K/uL BMP 05/18/22 05/19/22 16:20 04:44 Sodium 140 139 Potassium 4.5 4.4 Chloride 104 107 Carbon Dioxide 29 25 BUN 38 H 34 H Creatinine 1.62 H 1.32 D Glucose 99 97 Calcium 9.4 8.6 Liver Function 05/18/22 05/19/22 Range/Units 16:20 04:44 Total Bilirubin 1.8 H 1.4 H (0.2-1.0) mg/dl AST 104 H 52 H (13-39) U/L ALT 162 H 128 H (7-52) U/L Alkaline Phosphatase 83 64 (34-104) U/L Albumin 3.9 3.3 L (3.4-5.0) gm/dl (1) Chest pain Chest pain type: unspecified Qualified Code(s): R07.9 - Chest pain, unspecified
[2022-05-19] MEDS: allopurinoL 300 MG TAB PO SCH (20:01)
[2022-05-19] MEDS: traZODone HCL 100 MG TAB PO SCH (20:01)
[2022-05-19] MEDS: LATANOPROST 0.005% OP SOLN 2.5 ML BTL OPL SCH (20:02)
[2022-05-20] MEDS: METOPROLOL TARTRATE 25 MG TAB PO SCH ×3 (02:21→12:26)
[2022-05-20 06:31] LABS: INR 2.1 (0.9-1.1); Prothrombin Time 21.5 Seconds (9.0-12.0)
[2022-05-20 06:49] LABS: Albumin Globulin Ratio 1.2 (0.9-2); Albumin Level 3.5 gm/dl (3.4-5.0); BUN Creatinine Ratio 25.8 (10-20); Bilirubin,Total 1.3 mg/dl (0.2-1.0); Calcium 8.6 mg/dl (8.5-10.1); Creatinine Clr Calc Pharmacy 54.9 ml/min; Est GFR (African American) 67.1 ml/min; Est GFR (Non-African American) 57.9 ml/min; Globulin 2.9 gm/dl (2.5-4.0); Magnesium 2.1 mg/dl (1.7-2.4); Potassium 4.1 mmol/L (3.5-5.1); Total Protein 6.4 gm/dl (6.0-8.3)
[2022-05-20] MEDS: ISOSORBIDE MONO EXTENDED REL 30 MG TABCR PO SCH (07:48)
[2022-05-20] MEDS: ASPIRIN 81 MG ECTAB PO SCH (07:49)
[2022-05-20] MEDS: RANOLAZINE 500 MG ER TAB PO SCH ×2 (07:49→20:03)
--- NOTE | 2022-05-20 08:39 | Electrocardiogram Report ---
Test Reason : Blood Pressure : / mmHG Vent. Rate : 057 BPM Atrial Rate : 057 BPM P-R Int : 130 ms QRS Dur : 122 ms QT Int : 428 ms P-R-T Axes : 045 090 068 degrees QTc Int : 416 ms Sinus bradycardia with sinus arrhythmia Right bundle branch block Possible Old Septal infarct (cited on or before 19-MAY-2022) Abnormal ECG When compared with ECG of 18-MAY-2022 16:29, Sinus rhythm has replaced Atrial fibrillation Vent. rate has decreased BY 136 BPM Borderline Criteria for Septal infarct now present Confirmed by Fili Talamantes ([id number]) on 05/20/2022 8:39:15 AM Referred By: REFERRED SELF Confirmed By:Fili Talamantes
[2022-05-20] MEDS: AMIODARONE / D5W 360 MG/200 ML BAG IV SCH (10:44)
[2022-05-20] MEDS: AMIODARONE 200 MG TAB PO SCH ×2 (12:26→16:48)
--- NOTE | 2022-05-20 12:32 | Electrocardiogram Report ---
Test Reason : Blood Pressure : / mmHG Vent. Rate : 057 BPM Atrial Rate : 057 BPM P-R Int : 130 ms QRS Dur : 122 ms QT Int : 484 ms P-R-T Axes : 067 099 057 degrees QTc Int : 471 ms Sinus bradycardia Left atrial enlargement Right bundle branch block Possible Old Septal infarct (cited on or before 19-MAY-2022) Abnormal ECG When compared with ECG of 19-MAY-2022 13:14, QT has lengthened Confirmed by Fili Talamantes ([id number]) on 05/20/2022 12:32:20 PM Referred By: REFERRED SELF Confirmed By:Fili Talamantes
--- NOTE | 2022-05-20 13:13 | Cardiology Progress Note ---
Date of Service May 20, 2022 Assessment & Plan (1) Atrial fibrillation with rapid ventricular response: (2) Bifascicular block: (3) CAD (coronary artery disease): (4) Left ventricular systolic dysfunction: Plan: Echocardiogram performed this morning, reviewed independently, reveals moderate to severe left atrial enlargement, severe global left ventricular hypokinesis, LVEF 25%, down from 50 to 54% in 2020. Unsuccessful electrical cardioversion performed 05/18/2022. Short acting metoprolol as well as amiodarone infusion initiated evening of 05/18/2022. Direct-current cardioversion attempted again 05/19/2022 with successful conversion to sinus rhythm. Discontinue IV amiodarone, transition to amiodarone 400 mg 3 times daily with meals. Continue hospitalization on telemetry, for further supervised amiodarone loading. Anticipate dose reduction to 200 mg twice daily at time of discharge. Change metoprolol to metoprolol succinate 50 mg twice daily this evening (prior to hospital dose 25 mg daily) We need to keep the medication regimen as straightforward as possible as patient has a cognitive impairment from a previous stroke. EKG performed today 05/20/2022 revealed sinus bradycardia 57 bpm, with right bundle branch block, chronic septal infarct finding, QTC 471. Repeat EKG tomorrow given treatment with amiodarone, Ranexa, trazodone. INR 2.1 today, resume Coumadin 5 mg daily. Check INR tomorrow. Admission and Anticipated Discharge Date Admission Date: May 18, 2022 Subjective Patient seen in cardiology follow-up of atrial fibrillation, angina, new severe left ventricular systolic dysfunction. Patient without complaint. No additional angina since cardioversion to sinus rhythm on 05/19/2022. Telemetry reveals sinus bradycardia and sinus rhythm in the 50s to 60s. Amiodarone infusion ongoing without incident. Physical Exam Constitutional: WD/WN, vitals as above Respiratory: normal respiratory effort, lungs clear to auscultation Cardiovascular: Rate/Rhythm: + tachycardic Heart Sounds: no murmur Extremities: no edema Gastrointestinal (Abdomen): normal bowel sounds, soft, nontender, no hepatosplenomegaly Neurologic: PERRL, EOMI, accommodation nl, no face palsy, no dysarthria Results & Data ([facility]) Vital Signs (Past 12 Hours) Vital Signs Temp Pulse Resp BP Pulse Ox O2 Del Method O2 Flow Rate 10/21/22 12:00 37.0 C 58 L 18 143/82 H 99 Nasal Cannula 15 05/20/22 08:00 Nasal Cannula 2 05/20/22 08:00 36.8 C 73 18 154/95 H 100 Free Flow/Blow-by 15 05/20/22 04:00 36.4 C L 60 24 147/93 H 93 Nasal Cannula 2 05/20/22 02:30 Nasal Cannula 2
[2022-05-20] MEDS ORDERED: WARFARIN SOD 5 MG TAB PO SCH (16:00)
--- NOTE | 2022-05-20 17:09 | Hospitalist Progress Note ---
Date of Service May 20, 2022 Assessment & Plan (1) Atrial fibrillation with rapid ventricular response: (2) Chest pain: Plan: Patient is a 67-yr male with H/O Paroxysmal atrial fibrillation anticoagulated on warfarin, CAD with multiple interventions, s/p CABG, stent, bifascicular heart block, dyslipidemia, CVA, CKD III, gout presented to ER with complaint of chest pain, exertional SOB x 1 week. Outpatient cardiology office today and found to be in atrial fibrillation RVR with rate 200 and was transported to ER via EMS. Patient denies any noted palpitations. Atrial fibrillation with rapid ventricular response Bifascicular block Left ventricular systolic dysfunction: likely due to above Type II NC due to demand ischemia in the setting of A. fib RVR and known CAD Hypoxia secondary to pulmonary edema S/P successful Cardioversion on 05/19/22 -CXR:Cardiomegaly with pulmonary vascular congestion and mixed interstitial and alveolar opacities, likely apprenticeship training representative of pulmonary edema. Pneumonia could appear similarly. -ECHO: Atrial fibrillation with rapid ventricle response present during echocardiogram. Left atrium is dilated to moderate to severe degree. Severe global hypokinesis of left ventricle. Left ventricle systolic function is severely reduced. EF 35%. -Continue amiodarone, metoprolol as per cardiology INR therapeutic Resume Coumadin today Appreciate cardiology input Metoprolol changed to 50 mg twice daily Hypoxia resolved Saturating well on room air (3) CAD (coronary artery disease): Plan: H/O multiple coronary interventions, stent, CABG, stent of vein graft Continue aspirin, isosorbide, Ranexa Reported intolerance to statins in the past (4) Right bundle branch block: (5) Bifascicular block: Plan: History chronic RBBB, left posterior fascicular block (6) Stroke: Plan: Continue aspirin (7) CKD (chronic kidney disease), stage III: Plan: ZEB on CKD III Cr 1.6>>1.3>1.28 Monitor renal function (8) Gout: Plan: Continue allopurinol Transaminitis Likely secondary to hepatic congestion LFTs trending down Monitor DVT Px: Coumadin Code Status Fall code Admission and Anticipated Discharge Date Admission Date: May 18, 2022 Subjective Patient is seen and examined at bedside Currently in sinus Dyspnea much improved Feels better today No new complaints Denies chest pain, dizziness, nausea, abdominal pain Review of Systems Review of Systems: All systems reviewed & are unremarkable except as noted in Subjective Physical Exam Physical Exam: Physical Exam: Vitals signs as noted above General Appearance:Moderately built and nourished, no apparent distress Head: normocephalic, Atraumatic Eyes: normal inspection, EOMI Neck: supple, Trachea midline Respiratory/Chest: Normal breath sounds, CTA, No accessory muscle use Cardiovascular: S1, S2, + murmur Abdomen/GI:Soft, Non tender, Bowel sounds present Extremities/Musculoskeletal:normal inspection, no edema Neurologic/Psych:AAOX3, grossly no focal neurological deficits Skin: normal color, warm Results & Data Results & Data ([facility]) Vital Signs (Past 12 Hours) Vital Signs Temp Pulse Pulse Pulse Resp BP Pulse Ox 05/20/22 16:47 36.4 C L 51 L 19 129/79 95 05/20/22 14:50 70 05/20/22 12:00 37.0 C 58 L 18 143/82 H 99 05/20/22 08:00 05/20/22 08:00 36.8 C 73 18 154/95 H 100 O2 Del Method O2 Flow Rate 05/20/22 16:47 Room Air 05/20/22 14:50 05/20/22 12:00 Nasal Cannula 2 05/20/22 08:00 Nasal Cannula 2 05/20/22 08:00 High Flow Nasal Cannula 2 Laboratory Results [facility] 05/20/22 05:41 Sodium 138 Potassium 4.1 Chloride 106 Carbon Dioxide 26 BUN 33 H Creatinine 1.28 Glucose 90 Calcium 8.6 Liver Function 05/20/22 Range/Units 05:41 Total Bilirubin 1.3 H (0.2-1.0) mg/dl AST 39 (13-39) U/L ALT 107 H (7-52) U/L Alkaline Phosphatase 67 (34-104) U/L Albumin 3.5 (3.4-5.0) gm/dl (1) Chest pain Chest pain type: unspecified Qualified Code(s): R07.9 - Chest pain, unspecified
[2022-05-20] MEDS: allopurinoL 300 MG TAB PO SCH (20:02)
[2022-05-20] MEDS: METOPROLOL SUCC 50MG EXT REL TAB PO SCH (20:03)
[2022-05-20] MEDS: LATANOPROST 0.005% OP SOLN 2.5 ML BTL OPL SCH (20:03)
[2022-05-20] MEDS: traZODone HCL 100 MG TAB PO SCH (20:04)
[2022-05-21 05:49] LABS: Hematocrit (blood only) 40.4 % (40.1-51.0); Hemoglobin 13.4 g/dl (14.0-18.0); Mean Corpuscular Hemoglobin 31.6 pg (25.0-34.0); Mean Corpuscular Hgb Conc 33.2 g/dL (32.0-36.0); Mean Corpuscular Volume 95.3 fL (80.0-100.0); Mean Platelet Volume 10.8 fL (9.4-12.4); Platelet Count 186 K/uL (130-400); RDW Coefficient of Variation 13.7 % (11.5-14.5); RDW Standard Deviation 46.7 fL (36.4-46.3); Red Blood Count 4.24 M/uL (4.63-6.08); White Blood Count 8.13 K/ul (4.8-10.8)
[2022-05-21 06:11] LABS: INR 1.5 (0.9-1.1); Prothrombin Time 15.6 Seconds (9.0-12.0)
[2022-05-21 06:25] LABS: BUN Creatinine Ratio 18.8 (10-20); Calcium 8.7 mg/dl (8.5-10.1); Creatinine Clr Calc Pharmacy 50.9 ml/min; Est GFR (African American) 61.3 ml/min; Est GFR (Non-African American) 52.9 ml/min; Potassium 4.2 mmol/L (3.5-5.1)
--- NOTE | 2022-05-21 07:12 | Electrocardiogram Report ---
Test Reason : Blood Pressure : / mmHG Vent. Rate : 056 BPM Atrial Rate : 056 BPM P-R Int : 132 ms QRS Dur : 124 ms QT Int : 532 ms P-R-T Axes : 059 101 069 degrees QTc Int : 513 ms Sinus bradycardia with sinus arrhythmia Possible Left atrial enlargement Right bundle branch block Abnormal ECG Confirmed by Georgi Talbot ([id number]) on 05/21/2022 7:12:14 AM Referred By: REFERRED SELF Confirmed By:Sumanth Talbot
[2022-05-21] MEDS: METOPROLOL SUCC 50MG EXT REL TAB PO SCH ×2 (08:01→20:22)
[2022-05-21] MEDS: RANOLAZINE 500 MG ER TAB PO SCH ×2 (08:01→20:23)
[2022-05-21] MEDS: ASPIRIN 81 MG ECTAB PO SCH (08:01)
[2022-05-21] MEDS: ISOSORBIDE MONO EXTENDED REL 30 MG TABCR PO SCH (08:02)
[2022-05-21] MEDS: AMIODARONE 200 MG TAB PO SCH ×3 (08:02→16:25)
[2022-05-21] MEDS ORDERED: Heparin IV Adult Wt-Based Standard *NO* Bolus Protocol IV SCH (10:21)
--- NOTE | 2022-05-21 10:53 | Cardiology Progress Note ---
Date of Service May 21, 2022 Assessment & Plan (1) Atrial fibrillation with rapid ventricular response: (2) Bifascicular block: (3) CAD (coronary artery disease): (4) Left ventricular systolic dysfunction: Plan: Unsuccessful electrical cardioversion 05/18/2022. Short acting metoprolol and amiodarone infusion initiated evening of 05/18/2022. Direct-current cardioversion successful 05/19/2022. Prolonged QT interval with underlying right bundle branch block on ECG. Recommend discontinuation of trazodone. Repeat ECG in a.m. Continue amiodarone 400 mg 3 times daily with meals. Continue hospitalization on telemetry, for further supervised amiodarone neli harvey. Anticipate dose reduction to 200 mg twice daily at time of discharge. Continue metoprolol succinate 50 mg twice daily this evening (prior to hospital dose 25 mg daily) We need to keep the medication regimen as straightforward as possible as patient has a cognitive impairment from a previous stroke. EKG performed today 05/20/2022 revealed sinus bradycardia 57 bpm, with right bundle branch block, chronic septal infarct finding, QTC 471. Repeat EKG tomorrow given treatment with amiodarone, Ranexa, trazodone. Subtherapeutic INR today, 1.5, will give 7.5 mg of warfarin today. Initiate IV heparin infusion due to recent cardioversion x2. Repeat INR in AM. Admission and Anticipated Discharge Date Admission Date: May 18, 2022 Subjective Patient seen examined at the bedside. Remains in sinus rhythm overnight. Tolerating high-dose amiodarone and metoprolol. Anxious for discharge. Denies chest pain or recurrent palpitations. Somewhat of a poor historian. No orthopnea, PND, or edema. No concerns reported by nursing staff. Review of Systems Review of Systems: All systems reviewed & are unremarkable except as noted in Subjective Physical Exam Constitutional: well developed and well nourished; no acute distress Respiratory: normal respiratory effort; no respiratory distress, no labored breathing and no retractions Cardiovascular: Rate/Rhythm: regular rate and regular rhythm Heart Sounds: normal S1 and normal S2; no murmur Vessels: no JVD and no carotid bruit Extremities: no edema Gastrointestinal (Abdomen): Inspection/Auscultation: abdomen normal to inspection, + abdomen distended and normal bowel sounds Percussion/Palpation: + abdomen rigid; abdomen nontender, no guarding and + abdomen not soft Neurologic: CN's II-XI intact bilaterally and moves all extremities; no focal motor deficits Psychiatric: A+Ox3, euthymic affect Results & Data ([facility]) Vital Signs (Past 12 Hours) Vital Signs Temp Pulse Pulse Pulse Resp BP Pulse Ox 05/21/22 06:40 36.7 C 58 L 18 151/89 H 94 05/21/22 03:49 36.8 C 60 22 110/73 95 05/20/22 23:43 60 O2 Del Method 05/21/22 06:40 Room Air 05/21/22 03:49 Room Air 05/20/22 23:43
[2022-05-21] MEDS: HEPARIN SODIUM/DEXTROSE 25,000 UNITS/500 ML BAG IV SCH (10:57)
[2022-05-21 11:27] LABS: Partial Thromboplastin Ratio 1.2; Partial Thromboplastin Time 32.1 Seconds (21.0-31.0)
[2022-05-21] MEDS ORDERED: WARFARIN SOD 7.5 MG TAB PO SCH (16:00)
--- NOTE | 2022-05-21 17:06 | Hospitalist Progress Note ---
Date of Service May 21, 2022 Assessment & Plan (1) Atrial fibrillation with rapid ventricular response: (2) Chest pain: Plan: Patient is a 67-yr male with H/O Paroxysmal atrial fibrillation anticoagulated on warfarin, CAD with multiple interventions, s/p CABG, stent, bifascicular heart block, dyslipidemia, CVA, CKD III, gout presented to ER with complaint of chest pain, exertional SOB x 1 week. Outpatient cardiology office today and found to be in atrial fibrillation RVR with rate 200 and was transported to ER via EMS. Patient denies any noted palpitations. Atrial fibrillation with rapid ventricular response Bifascicular block Left ventricular systolic dysfunction: likely due to above Type II OR due to demand ischemia in the setting of A. 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 Pneumonia could appear similarly. -ECHO: Atrial fibrillation with rapid ventricle response present during echocardiogram. Left atrium is dilated to moderate to severe degree. Severe global hypokinesis of left ventricle. Left ventricle systolic function is severely reduced. EF 35%. -Continue amiodarone, metoprolol as per cardiology INR Subtherapeutic: 1.5 Resumed Coumadin today: give 7.5mg today Appreciate cardiology input Metoprolol changed to 50 mg twice daily Saturating well on room air IV heparin till INR is therapeutic (3) CAD (coronary artery disease): Plan: H/O multiple coronary interventions, stent, CABG, stent of vein graft Continue aspirin, isosorbide, Ranexa Reported intolerance to statins in the past (4) Right bundle branch block: (5) Bifascicular block: Plan: History chronic RBBB, left posterior fascicular block (6) Stroke: Plan: Continue aspirin (7) CKD (chronic kidney disease), stage III: Plan: ZEB on CKD III Cr 1.6>>1.3 Monitor renal function (8) Gout: Plan: Continue allopurinol Transaminitis Likely secondary to hepatic congestion LFTs trending down Monitor DVT Px: Coumadin IV heparin Code Status Fall code Admission and Anticipated Discharge Date Admission Date: May 18, 2022 Subjective Patient is seen and examined at bedside Sitting in chair comfortably No new complaints Eager to get discharged Denies chest pain, dyspnea, dizziness, nausea, abdominal pain Review of Systems Review of Systems: All systems reviewed & are unremarkable except as noted in Subjective Physical Exam Physical Exam: Physical Exam: Vitals signs as noted above General Appearance:Moderately built and nourished, no apparent distress Head: normocephalic, Atraumatic Eyes: normal inspection, EOMI Neck: supple, Trachea midline Respiratory/Chest: Normal breath sounds, CTA, No accessory muscle use Cardiovascular: S1, S2, + murmur Abdomen/GI:Soft, Non tender, Bowel sounds present Extremities/Musculoskeletal:normal inspection, no edema Neurologic/Psych:AAOX3, grossly no focal neurological deficits Skin: normal color, warm Results & Data Results & Data ([facility]) Vital Signs (Past 12 Hours) Vital Signs Temp Pulse Pulse Resp BP Pulse Ox O2 Del Method 05/21/22 15:43 36.7 C 49 L 18 103/63 94 Room Air 05/21/22 12:35 36.5 C 50 L 20 116/71 93 Room Air 05/21/22 11:00 58 L 05/21/22 06:40 36.7 C 58 L 18 151/89 H 94 Room Air Laboratory Results Short CBC 05/21/22 Range/Units 05:22 WBC 8.13 (4.8-10.8) K/ul Hgb 13.4 L (14.0-18.0) g/dl Hct 40.4 (40.1-51.0) % Plt Count 186 (130-400) K/uL BMP 05/21/22 05:22 Sodium 138 Potassium 4.2 Chloride 106 Carbon Dioxide 29 BUN 26 H Creatinine 1.38 Glucose 85 Calcium 8.7 (1) Chest pain Chest pain type: unspecified Qualified Code(s): R07.9 - Chest pain, unspecified
[2022-05-21 17:42] LABS: Partial Thromboplastin Ratio 1.7
[2022-05-21 17:55] LABS: Partial Thromboplastin Time 47.8 Seconds (21.0-31.0)
[2022-05-21] MEDS: LATANOPROST 0.005% OP SOLN 2.5 ML BTL OPL SCH (20:21)
[2022-05-21] MEDS: allopurinoL 300 MG TAB PO SCH (20:22)
[2022-05-22] MEDS: HEPARIN SODIUM/DEXTROSE 25,000 UNITS/500 ML BAG IV SCH ×2 (04:36→23:50)
[2022-05-22 05:49] LABS: BUN Creatinine Ratio 21.4 (10-20); Creatinine Clr Calc Pharmacy 53.7 ml/min; Est GFR (African American) 65.3 ml/min; Est GFR (Non-African American) 56.3 ml/min; Potassium 4.4 mmol/L (3.5-5.1)
[2022-05-22 05:57] LABS: INR 1.4 (0.9-1.1); Prothrombin Time 14.5 Seconds (9.0-12.0)
[2022-05-22 05:59] LABS: Partial Thromboplastin Time 55.9 Seconds (21.0-31.0)
[2022-05-22] MEDS: ASPIRIN 81 MG ECTAB PO SCH (07:19)
[2022-05-22] MEDS: ISOSORBIDE MONO EXTENDED REL 30 MG TABCR PO SCH (07:19)
[2022-05-22] MEDS: RANOLAZINE 500 MG ER TAB PO SCH ×2 (07:19→20:12)
[2022-05-22] MEDS: METOPROLOL SUCC 50MG EXT REL TAB PO SCH ×2 (07:20→20:12)
[2022-05-22] MEDS: AMIODARONE 200 MG TAB PO SCH ×3 (07:20→16:58)
--- NOTE | 2022-05-22 07:22 | Electrocardiogram Report ---
Test Reason : Blood Pressure : / mmHG Vent. Rate : 049 BPM Atrial Rate : 049 BPM P-R Int : 136 ms QRS Dur : 132 ms QT Int : 572 ms P-R-T Axes : 061 103 076 degrees QTc Int : 516 ms Sinus bradycardia with Premature atrial complexes Possible Left atrial enlargement Right bundle branch block Abnormal ECG When compared with ECG of 21-MAY-2022 06:21, Premature atrial complexes are now Present Confirmed by Georgi Talbot ([id number]) on 05/22/2022 7:22:27 AM Referred By: REFERRED SELF Confirmed By:Sumanth Talbot
--- NOTE | 2022-05-22 10:27 | Cardiology Progress Note ---
Date of Service May 22, 2022 Assessment & Plan (1) Atrial fibrillation with rapid ventricular response: (2) Bifascicular block: (3) CAD (coronary artery disease): (4) Left ventricular systolic dysfunction: Plan: Unsuccessful electrical cardioversion 05/18/2022. Short acting metoprolol and amiodarone infusion initiated evening of 05/18/2022. Direct-current cardioversion successful 05/19/2022. Prolonged QT interval with underlying right bundle branch block on ECG. Trazodone discontinued 05/22/2022. Repeat ECG stable today. Repeat in a.m. INR remains subtherapeutic. Agree with titration of warfarin to 10 mg daily. Continue IV heparin infusion. Repeat INR in a.m. Continue amiodarone 400 mg 3 times daily with meals. Continue hospitalization on telemetry, for further supervised amiodarone loading heparin bridging. Anticipate dose reduction to 200 mg twice daily at time of discharge. Continue metoprolol succinate 50 mg twice daily this evening (prior to hospital dose 25 mg daily) We need to keep the medication regimen as straightforward as possible as patient has a cognitive impairment from a previous stroke. Admission and Anticipated Discharge Date Admission Date: May 18, 2022 Subjective Patient seen examined the bedside. Remains in sinus rhythm on telemetry. INR has trended downward to 1.4 despite titration of warfarin to 7.5 mg yesterday. IV heparin infusing. Repeat ECG demonstrates sinus rhythm with a right bundle branch block and prolonged QT. Trazodone discontinued. Patient denies palpita tions or chest discomfort. Anxious for discharge. Review of Systems Review of Systems: All systems reviewed & are unremarkable except as noted in Subjective Physical Exam Constitutional: well developed and well nourished; no acute distress Respiratory: normal respiratory effort; no respiratory distress, no labored breathing and no retractions Cardiovascular: Rate/Rhythm: regular rate and regular rhythm Heart Sounds: normal S1 and normal S2; no murmur Vessels: no JVD and no carotid bruit Ex tremities: no edema Gastrointestinal (Abdomen): Inspection/Auscultation: abdomen normal to inspection, + abdomen distended and normal bowel sounds Percussion/Palpation: + abdomen rigid; abdomen nontender, no guarding and + abdomen not soft Neurologic: CN's II-XI intact bilaterally and moves all extremities; no focal motor deficits Psychiatric: A+Ox3, euthymic affect Results & Data ([facility]) Vital Signs (Past 12 Hours) Vital Signs Temp Pulse Pulse Resp BP Pulse Ox O2 Del Method 05/22/22 07:25 36.7 C 53 L 19 139/87 98 Room Air 05/22/22 04:33 36 C L 68 18 135/79 93 Room Air 05/21/22 22:30 57 L
[2022-05-22] MEDS: WARFARIN SOD 10 MG TAB PO SCH (16:59)
--- NOTE | 2022-05-22 17:01 | Hospitalist Progress Note ---
Date of Service May 22, 2022 Assessment & Plan (1) Atrial fibrillation with rapid ventricular response: (2) Chest pain: Plan: Patient is a 67-yr male with H/O Paroxysmal atrial fibrillation anticoagulated on warfarin, CAD with multiple interventions, s/p CABG, stent, bifascicular heart block, dyslipidemia, CVA, CKD III, gout presented to ER with complaint of chest pain, exertional SOB x 1 week. Outpatient cardiology office today and found to be in atrial fibrillation RVR with rate 200 and was transported to ER via EMS. Patient denies any noted palpitations. Atrial fibrillation with rapid ventricular response Bifascicular block Left ventricular systolic dysfunction: likely due to above Type II DC due to demand ischemia in the setting of A. 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 Pneumonia could appear similarly. -ECHO: Atrial fibrillation with rapid ventricle response present during echocardiogram. Left atrium is dilated to moderate to severe degree. Severe global hypokinesis of left ventricle. Left ventricle systolic function is severely reduced. EF 35%. -Continue amiodarone, metoprolol as per cardiology INR Subtherapeutic: 1.4 Increase Coumadin today: 10mg today Appreciate cardiology input Continue IV heparin till INR is therapeutic Needs follow up with Cardiology upon discharge (3) CAD (coronary artery disease): Plan: H/O multiple coronary interventions, stent, CABG, stent of vein graft Continue aspirin, isosorbide, Ranexa Reported intolerance to statins in the past (4) Right bundle branch block: (5) Bifascicular block: Plan: History chronic RBBB, left posterior fascicular block (6) Stroke: Plan: Continue aspirin (7) CKD (chronic kidney disease), stage III: Plan: ZEB on CKD III Cr 1.6>>1.3 Monitor renal function (8) Gout: Plan: Continue allopurinol Transaminitis Likely secondary to hepatic congestion LFTs trended down Monitor DVT Px: INR subtherapeutic Coumadin IV heparin Code Status Fall code Admission and Anticipated Discharge Date Admission Date: May 18, 2022 Subjective Patient is seen and examined at bedside Was upset due to need for prolonged hospitalization No other complaints On IV Heparin Denies chest pain, dyspnea, dizziness, nausea, abdominal pain Review of Systems Review of Systems: All systems reviewed & are unremarkable except as noted in Subjective Physical Exam Physical Exam: Physical Exam: Vitals signs as noted above General Appearance:Moderately built and nourished, no apparent distress Head: normocephalic, Atraumatic Eyes: normal inspection, EOMI Neck: supple, Trachea midline Respiratory/Chest: Normal breath sounds, CTA, No accessory muscle use Cardiovascular: S1, S2, + murmur Abdomen/GI:Soft, Non tender, Bowel sounds present Extremities/Musculoskeletal:normal inspection, no edema Neurologic/Psych:AAOX3, grossly no focal neurological deficits Skin: normal color, warm Results & Data Results & Data ([facility]) Vital Signs (Past 12 Hours) Vital Signs Temp Pulse Resp BP Pulse Ox O2 Del Method 05/22/22 14:48 36.3 C L 44 L 17 128/82 97 Room Air 05/22/22 12:23 36.4 C L 46 L 19 127/75 95 Room Air 05/22/22 07:25 36.7 C 53 L 19 139/87 98 Room Air Laboratory Results [facility] 05/22/22 04:30 Sodium 137 Potassium 4.4 Chloride 103 Carbon Dioxide 30 BUN 28 H Creatinine 1.31 Glucose 93 Calcium 9.0 (1) Chest pain Chest pain type: unspecified Qualified Code(s): R07.9 - Chest pain, unspecified
[2022-05-22] MEDS: allopurinoL 300 MG TAB PO SCH (20:12)
[2022-05-22] MEDS: LATANOPROST 0.005% OP SOLN 2.5 ML BTL OPL SCH (20:13)
[2022-05-23 06:14] LABS: Hematocrit (blood only) 42.6 % (40.1-51.0); Mean Corpuscular Hemoglobin 31.4 pg (25.0-34.0); Mean Corpuscular Hgb Conc 32.9 g/dL (32.0-36.0); Mean Corpuscular Volume 95.5 fL (80.0-100.0); Mean Platelet Volume 10.6 fL (9.4-12.4); Platelet Count 191 K/uL (130-400); RDW Coefficient of Variation 13.8 % (11.5-14.5); RDW Standard Deviation 47.9 fL (36.4-46.3); Red Blood Count 4.46 M/uL (4.63-6.08); White Blood Count 8.79 K/ul (4.8-10.8)
[2022-05-23 06:36] LABS: BUN Creatinine Ratio 20.5 (10-20); Calcium 9.2 mg/dl (8.5-10.1); Creatinine Clr Calc Pharmacy 55.4 ml/min; Est GFR (African American) 67.8 ml/min; Est GFR (Non-African American) 58.5 ml/min; Potassium 4.4 mmol/L (3.5-5.1)
[2022-05-23 07:07] LABS: INR 1.7 (0.9-1.1); Partial Thromboplastin Ratio 2.5; Prothrombin Time 17.8 Seconds (9.0-12.0)
[2022-05-23 07:09] LABS: Partial Thromboplastin Time 69.3 Seconds (21.0-31.0)
[2022-05-23] MEDS: AMIODARONE 200 MG TAB PO SCH ×2 (08:00→16:59)
[2022-05-23] MEDS: ISOSORBIDE MONO EXTENDED REL 30 MG TABCR PO SCH (08:01)
[2022-05-23] MEDS: ASPIRIN 81 MG ECTAB PO SCH (08:01)
[2022-05-23] MEDS: METOPROLOL SUCC 50MG EXT REL TAB PO SCH (08:02)
[2022-05-23] MEDS: RANOLAZINE 500 MG ER TAB PO SCH ×2 (08:02→20:02)
--- NOTE | 2022-05-23 11:02 | Cardiology Progress Note ---
Date of Service May 23, 2022 Assessment & Plan (1) Atrial fibrillation with rapid ventricular response: (2) Bifascicular block: (3) CAD (coronary artery disease): (4) Left ventricular systolic dysfunction: Plan: Unsuccessful electrical cardioversion 05/18/2022. Short acting metoprolol and amiodarone infusion initiated evening of 05/18/2022. Direct-current cardioversion successful 05/19/2022. Prolonged QT interval with underlying right bundle branch block on ECG. Trazodone discontinued 05/22/2022. Repeat ECG demonstrates improved QT. Reduce amiodarone to 200 mg twice daily. Reduce metoprolol succinate to 50 mg daily (prior to hospital dose 25 mg daily) due to ongoing asymptomatic sinus bradycardia. INR remains subtherapeutic. Continue warfarin 10 mg daily. Continue IV heparin infusion. Repeat INR in a.m. Admission and Anticipated Discharge Date Admission Date: May 18, 2022 Subjective Patient seen examined at the bedside. Feeling well today. Telemetry reveals sinus bradycardia with heart rates in the 40s. No lightheadedness, dizziness, syncope, or near syncope. Blood pressure remains adequate. A.m. dose of metoprolol held due to bradycardia. He did receive a.m. dose of amiodarone, 400 mg. INR remains subtherapeutic. Anxious for discharge. Review of Systems Review of Systems: All systems reviewed & are unremarkable except as noted in Subjective Physical Exam Constitutional: well developed and well nourished; no acute distress Respiratory: normal respiratory effort; no respiratory distress, no labored breathing and no retractions Cardiovascular: Rate/Rhythm: regular rate and regular rhythm Heart Sounds: normal S1 and normal S2; no murmur Vessels: no JVD and no carotid bruit Extremities: no edema Gastrointestinal (Abdomen): Inspection/Auscultation: abdomen normal to inspection, + abdomen distended and normal bowel sounds Percussion/Palpation: + abdomen rigid; abdomen nontender, no guarding and + abdomen not soft Neurologic: CN's II-XI intact bilaterally and moves all extremities; no focal motor deficits Psychiatric: A+Ox3, euthymic affect Results & Data ([facility]) Vital Signs (Past 12 Hours) Vital Signs Temp Pulse Pulse Resp BP BP Pulse Ox 05/23/22 07:13 36.5 C 50 L 17 135/87 96 05/23/22 03:43 36.6 C 60 18 121/82 92 O2 Del Method 05/23/22 07:13 Room Air 05/23/22 03:43 Room Air
[2022-05-23 13:36] LABS: Partial Thromboplastin Ratio 2.5
[2022-05-23 13:54] LABS: Partial Thromboplastin Time 68.7 Seconds (21.0-31.0)
--- NOTE | 2022-05-23 16:17 | Hospitalist Progress Note ---
Date of Service May 23, 2022 Assessment & Plan (1) Atrial fibrillation with rapid ventricular response: (2) Chest pain: Plan: Patient is a 67-yr male with H/O Paroxysmal atrial fibrillation anticoagulated on warfarin, CAD with multiple interventions, s/p CABG, stent, bifascicular heart block, dyslipidemia, CVA, CKD III, gout presented to ER with complaint of chest pain, exertional SOB x 1 week. Outpatient cardiology office today and found to be in atrial fibrillation RVR with rate 200 and was transported to ER via EMS. Patient denies any noted palpitations. Atrial fibrillation with rapid ventricular response Bifascicular block Left ventricular systolic dysfunction: likely due to above Type II IA due to demand ischemia in the setting of A. 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 Pneumonia could appear similarly. -ECHO: Atrial fibrillation with rapid ventricle response present during echocardiogram. Left atrium is dilated to moderate to severe degree. Severe global hypokinesis of left ventricle. Left ventricle systolic function is severely reduced. EF 35%. -Continue amiodarone, metoprolol as per cardiology INR Subtherapeutic: 1.7 today Increase Coumadin today: 10mg today Appreciate cardiology input Continue IV heparin till INR is therapeutic Needs follow up with Cardiology upon discharge Amiodarone decreased to 200 mg twice daily, metoprolol decreased to 50 mg daily today (3) CAD (coronary artery disease): Plan: H/O multiple coronary interventions, stent, CABG, stent of vein graft Continue aspirin, isosorbide, Ranexa Reported intolerance to statins in the past (4) Right bundle branch block: (5) Bifascicular block: Plan: History chronic RBBB, left posterior fascicular block (6) Stroke: Plan: Continue aspirin (7) CKD (chronic kidney disease), stage III: Plan: ZEB on CKD III Cr 1.6>>1.3>1.2 Monitor renal function (8) Gout: Plan: Continue allopurinol Transaminitis Likely secondary to hepatic congestion LFTs trended down Monitor DVT Px: INR subtherapeutic Coumadin IV heparin Code Status Fall code Admission and Anticipated Discharge Date Admission Date: May 18, 2022 Subjective Patient is seen and examined at bedside States feeling well No new complaints On IV Heparin--denies any bleeding issues Denies chest pain, dyspnea, dizziness, nausea, abdominal pain INR 1.7 today Discussed with Cardiology today Review of Systems Review of Systems: All systems reviewed & are unremarkable except as noted in Subjective Physical Exam Physical Exam: Physical Exam: Vitals signs as noted above General Appearance:Moderately built and nourished, no apparent distress Head: normocephalic, Atraumatic Eyes: normal inspection, EOMI Neck: supple, Trachea midline Respiratory/Chest: Normal breath sounds, CTA, No accessory muscle use Cardiovascular: S1, S2, + murmur Abdomen/GI:Soft, Non tender, Bowel sounds present Extremities/Musculoskeletal:normal inspection, no edema Neurologic/Psych:AAOX3, grossly no focal neurological deficits Skin: normal color, warm Results & Data Results & Data ([facility]) Vital Signs (Past 12 Hours) Vital Signs Temp Pulse Pulse Resp BP BP Pulse Ox 05/23/22 15:17 36.6 C 58 L 18 109/61 95 05/23/22 12:30 36.5 C 44 L 18 118/67 96 05/23/22 07:00 44 L 05/23/22 07:13 36.5 C 50 L 17 135/87 96 O2 Del Method 05/23/22 15:17 Room Air 05/23/22 12:30 Room Air 05/23/22 07:00 05/23/22 07:13 Room Air Laboratory Results Short CBC 05/23/22 Range/Units 05:34 WBC 8.79 (4.8-10.8) K/ul Hgb 14.0 (14.0-18.0) g/dl Hct 42.6 (40.1-51.0) % Plt Count 191 (130-400) K/uL BMP 05/23/22 05:34 Sodium 138 Potassium 4.4 Chloride 103 Carbon Dioxide 31 BUN 26 H Creatinine 1.27 Glucose 87 Calcium 9.2 (1) Chest pain Chest pain type: unspecified Qualified Code(s): R07.9 - Chest pain, unspecified
[2022-05-23] MEDS: WARFARIN SOD 10 MG TAB PO SCH (16:59)
[2022-05-23] MEDS: allopurinoL 300 MG TAB PO SCH (20:02)
[2022-05-23] MEDS: LATANOPROST 0.005% OP SOLN 2.5 ML BTL OPL SCH ×2 (20:03)
[2022-05-23] MEDS: HEPARIN SODIUM/DEXTROSE 25,000 UNITS/500 ML BAG IV SCH (20:04)
[2022-05-23 20:34] LABS: Partial Thromboplastin Ratio 2.3
[2022-05-23 20:52] LABS: Partial Thromboplastin Time 62.5 Seconds (21.0-31.0)
--- NOTE | 2022-05-24 05:18 | Electrocardiogram Report ---
Test Reason : Blood Pressure : / mmHG Vent. Rate : 042 BPM Atrial Rate : 042 BPM P-R Int : 144 ms QRS Dur : 130 ms QT Int : 590 ms P-R-T Axes : 058 105 084 degrees QTc Int : 492 ms Marked sinus bradycardia Possible Left atrial enlargement Right bundle branch block Abnormal ECG When compared with ECG of 22-MAY-2022 06:03, Premature atrial complexes are no longer Present Questionable change in initial forces of Septal leads Confirmed by Michele Restrepo ([id number]) on 05/24/2022 5:18:06 AM Referred By: REFERRED SELF Confirmed By:Michele Restrepo
[2022-05-24 06:48] LABS: BUN Creatinine Ratio 18.7 (10-20); Calcium 9.4 mg/dl (8.5-10.1); Creatinine Clr Calc Pharmacy 50.6 ml/min; Est GFR (African American) 60.8 ml/min; Est GFR (Non-African American) 52.4 ml/min; Potassium 4.2 mmol/L (3.5-5.1)
[2022-05-24 07:17] LABS: INR 2.3 (0.9-1.1); Partial Thromboplastin Ratio 2.7; Prothrombin Time 23.5 Seconds (9.0-12.0)
[2022-05-24 07:24] LABS: Partial Thromboplastin Time 73.2 Seconds (21.0-31.0)
[2022-05-24] MEDS: AMIODARONE 200 MG TAB PO SCH (08:16)
[2022-05-24] MEDS: RANOLAZINE 500 MG ER TAB PO SCH (08:17)
[2022-05-24] MEDS: ISOSORBIDE MONO EXTENDED REL 30 MG TABCR PO SCH (08:17)
[2022-05-24] MEDS: ASPIRIN 81 MG ECTAB PO SCH (08:17)
[2022-05-24] MEDS ORDERED: METOPROLOL SUCC 50MG EXT REL TAB PO SCH (09:00)
--- NOTE | 2022-05-24 13:16 | Cardiology Progress Note ---
Date of Service May 24, 2022 Assessment & Plan (1) Atrial fibrillation with rapid ventricular response: (2) Bifascicular block: (3) CAD (coronary artery disease): (4) Left ventricular systolic dysfunction: Plan: Unsuccessful electrical cardioversion 05/18/2022. Short acting metoprolol and amiodarone infusion initiated evening of 05/18/2022. Direct-current cardioversion successful 05/19/2022. Prolonged QT interval with underlying right bundle branch block on ECG. Trazodone discontinued 05/22/2022. Repeat ECG demonstrates improved QT. Reduce amiodarone to 200 mg twice daily. Reduce metoprolol succinate to 50 mg daily (prior to hospital dose 25 mg daily) due to ongoing asymptomatic sinus bradycardia. INR remains subtherapeutic. Continue warfarin 10 mg daily. Continue IV heparin infusion. Repeat INR in a.m. 05/24/2022 Patient asymptomatic with mild bradycardia. No pauses or progression in conduction system disease. Telemetry well reviewed without recurrence of arrhythmia. Vital signs at 1050 this morning not accurate INR now therapeutic We will reduce amiodarone to 200 mg once per day, metoprolol succinate to 25 mg/day. Now stable for discharge will need close follow-up with coag clinic given recent introduction of amiodarone Cardiology follow-up 2 to 4 weeks EKG with PCP visit on Admission and Anticipated Discharge Date Admission Date: May 18, 2022 Subjective Patient seen and examined, chart, medications, telemetry reviewed No cardiac complaints anxious to be discharged with only complaints of fatigue. No chest pain shortness of breath or tachypalpitations. Telemetry review reveals sinus and sinus bradycardia only. Note vital signs on chart inaccurate Physical Exam Physical Exam: Temp Pulse Resp BP Pulse Ox O2 Del Method O2 Flow Rate 36.4 C L 157 H 28 H 119/88 96 2 05/19/22 07:52 05/19/22 08:49 05/19/22 08:00 05/19/22 07:31 05/19/22 08:00 05/19/22 07:42 05/19/22 07:42 Constitutional: WD/WN, vitals as above well developed and well nourished; no acute distress Respiratory: normal respiratory effort, lungs clear to auscultation normal respiratory effort; no respiratory distress, no labored breathing and no retractions Cardiovascular: Rate/Rhythm: regular rate, regular rhythm and + tachycardic Heart Sounds: normal S1 and normal S2; no murmur Vessels: no JVD and no carotid bruit Extremities: no edema Gastrointestinal (Abdomen): normal bowel sounds, soft, nontender, no hepatosplenomegaly Inspection/Auscultation: abdomen normal to inspection, + abdomen distended and normal bowel sounds Percussion/Palpation: + abdomen rigid; abdomen nontender, no guarding and + abdomen not soft Neurologic: PERRL, EOMI, accommodation nl, no face palsy, no dysarthria CN's II-XI intact bilaterally and moves all extremities; no focal motor deficits Psychiatric: A+Ox3, euthymic affect Results & Data ([facility]) Vital Signs (Past 12 Hours) Vital Signs Temp Pulse Pulse Resp BP BP Pulse Ox 05/24/22 10:50 36.6 C 98 H 9 L 104/70 92 05/24/22 08:08 36.5 C 68 20 145/99 H 97 05/24/22 03:00 36.6 C 54 L 132/83 97 O2 Del Method 05/24/22 10:50 Room Air 05/24/22 08:08 Room Air 05/24/22 03:00 Room Air Laboratory Results Laboratory Results - last 24 hr 05/23/22 05/23/22 05/24/22 12:56 19:53 05:26 PT Cancelled INR Cancelled APTT 68.7 H* 62.5 H* PTT Ratio 2.5 2.3 Sodium Potassium Chloride Carbon Dioxide Anion Gap BUN Creatinine Est Cr Clr Drug Dosing Est GFR ( Amer) Est GFR (Non-Af Amer) BUN/Creatinine Ratio Glucose Calcium 05/24/22 05/24/22 05:26 05:26 PT 23.5 H INR 2.3 H APTT 73.2 H* PTT Ratio 2.7 Sodium 137 Potassium 4.2 Chloride 101 Carbon Dioxide 32 Anion Gap 4 BUN 26 H Creatinine 1.39 Est Cr Clr Drug Dosing 50.6 Est GFR ( Amer) 60.8 Est GFR (Non-Af Amer) 52.4 BUN/Creatinine Ratio 18.7 Glucose 81 Calcium 9.4
--- NOTE | 2022-05-24 13:19 | Hospitalist Progress Note ---
Date of Service May 24, 2022 Assessment & Plan (1) Atrial fibrillation with rapid ventricular response: (2) Chest pain: Plan: Patient is a 67-yr male with H/O Paroxysmal atrial fibrillation anticoagulated on warfarin, CAD with multiple interventions, s/p CABG, stent, bifascicular heart block, dyslipidemia, CVA, CKD III, gout presented to ER with complaint of chest pain, exertional SOB x 1 week. Outpatient cardiology office today and found to be in atrial fibrillation RVR with rate 200 and was transported to ER via EMS. Patient denies any noted palpitations. Atrial fibrillation with rapid ventricular response Bifascicular block Left ventricular systolic dysfunction: likely due to above Type II [place] due to demand ischemia in the setting of A. fib RVR and known CAD Hypoxia secondary to pulmonary edema S/P successful Cardioversion on 05/19/22 -CXR:Cardiomegaly with pulmonary vascular congestion and mixed interstitial and alveolar opacities, likely insurance verification representative of pulmonary edema. Pneumonia could appear similarly. -ECHO: Atrial fibrillation with rapid ventricle response present during echocardiogram. Left atrium is dilated to moderate to severe degree. Severe global hypokinesis of left ventricle. Left ventricle systolic function is severely reduced. EF 35%. -Continue amiodarone, metoprolol as per cardiology INR therapeutic: 2.3 today Decrease Coumadin to 5 mg today Appreciate cardiology input IV heparin discontinued Amiodarone decreased to 200 mg daily, metoprolol decreased to 25 mg daily today Needs follow up with Cardiology upon discharge (3) CAD (coronary artery disease): Plan: H/O multiple coronary interventions, stent, CABG, stent of vein graft Continue aspirin, isosorbide, Ranexa Reported intolerance to statins in the past (4) Right bundle branch block: (5) Bifascicular block: Plan: History chronic RBBB, left posterior fascicular block (6) Stroke: Plan: Continue aspirin (7) CKD (chronic kidney disease), stage III: Plan: ZEB on CKD III Cr 1.6>>1.3 Monitor renal function (8) Gout: Plan: Continue allopurinol Transaminitis Likely secondary to hepatic congestion LFTs trended down Monitor DVT Px: Coumadin Code Status Fall code Admission and Anticipated Discharge Date Admission Date: May 18, 2022 Subjective Patient is seen and examined at bedside No new complaints Discussed with Cardiology today Denies chest pain, dyspnea, dizziness, nausea, abdominal pain INR 2.3 today Plan to discharge home today Review of Systems Review of Systems: All systems reviewed & are unremarkable except as noted in Subjective Physical Exam Physical Exam: Physical Exam: Vitals signs as noted above General Appearance:Moderately built and nourished, no apparent distress Head: normocephalic, Atraumatic Eyes: normal inspection, EOMI Neck: supple, Trachea midline Respiratory/Chest: Normal breath sounds, CTA, No accessory muscle use Cardiovascular: S1, S2, + murmur Abdomen/GI:Soft, Non tender, Bowel sounds present Extremities/Musculoskeletal:normal inspection, no edema Neurologic/Psych:AAOX3, grossly no focal neurological deficits Skin: normal color, warm Results & Data Results & Data ([facility]) Vital Signs (Past 12 Hours) Vital Signs Temp Pulse Pulse Resp BP BP Pulse Ox 05/24/22 10:50 36.6 C 98 H 9 L 104/70 92 05/24/22 08:08 36.5 C 68 20 145/99 H 97 05/24/22 03:00 36.6 C 54 L 132/83 97 O2 Del Method 05/24/22 10:50 Room Air 05/24/22 08:08 Room Air 05/24/22 03:00 Room Air Laboratory Results BMP 05/24/22 05:26 Sodium 137 Potassium 4.2 Chloride 101 Carbon Dioxide 32 BUN 26 H Creatinine 1.39 Glucose 81 Calcium 9.4 (1) Chest pain Chest pain type: unspecified Qualified Code(s): R07.9 - Chest pain, unspecified
--- NOTE | 2022-05-24 13:47 | Discharge Summary ---
Date of Service May 24, 2022 Admission HPI Per Admitting Provider Patient is 67-year-old male with PMH paroxysmal atrial fibrillation anticoagulated on warfarin, CAD with multiple interventions, s/p CABG, stent, bifascicular heart block, dyslipidemia, CVA, CKD III, gout presented to ER with complaint of chest pain. Patient has been having ongoing chest pain, exertional shortness of breath for the past week however worsening the past 2 days. Patient has been using nitro with limited relief. Patient presented to outpatient cardiology office today and found to be in atrial fibrillation RVR with rate 200 and was transported to ER via EMS. Patient denies any noted palpitations. Denies any increased edema. He reports he has been having bilateral leg aching and paresthesia sensation, worse to right leg. He was started on prednisone taper for leg pain without relief. Denies fever/chills, diaphoresis, N/V/D/C, GALAVIZ, dizziness, syncope, vision changes, neck pain, cough, sore throat, choking, otalgia, rhinorrhea, abdominal pain, extremity weakness, rashes, urinary symptoms. In ER found to be in atrial fibrillation RVR with rate of 200. Diltiazem bolus given without improvement. Cardiology consulted. Patient sedated and cardioverted x 3 without improvement. Metoprolol tartrate IV given, amiodarone bolus and drip started. Admission Exam Per Admitting Provider Physical Exam Physical Exam: General: mild distress, + ill appearing, WDWN Head: normocephalic, atraumatic Eyes: conjunctiva non-injected, anicteric ENT: normal inspection external ears, nose, mucous membranes moist Neck: supple, trachea midline Lungs: clear, no respiratory distress, no wheezing/rhonchi/rales CV: Irregularly irregular, rate 160, no pretibial edema Abd: normal BS, soft, non-tender Ext: no cyanosis, no calf tenderness Neuro: A&O x 3, no focal deficits noted, +anxious affect Skin: warm, dry Principal Diagnosis Atrial fibrillation with rapid ventricular response Acute Kidney Injury Discharge Data Allergies Allergy/AdvReac Type Severity Reaction Status Date / Time No Known Drug Allergies Allergy Unknown NKDA Verified 01/03/20 14:53 Consultations 05/18/22 17:51 Consult Cardiology Stat 05/18/22 17:57 ED Decision to Admit Stat 05/18/22 20:37 Consult Cardiology Routine 05/19/22 09:07 Consult Anesthesiology Routine Procedures Performed Operation Date: 05/19/22 13:00 Actual Procedures p Cardioversion - Ish Chris DO Ordered Studies Laboratory Results WBC 8.79 K/ul (4.8-10.8) 05/23/22 05:34 RBC 4.46 M/uL (4.63-6.08) L 05/23/22 05:34 Hgb 14.0 g/dl (14.0-18.0) 05/23/22 05:34 Hct 42.6 % (40.1-51.0) 05/23/22 05:34 MCV 95.5 fL (80.0-100.0) 05/23/22 05:34 MCH 31.4 pg (25.0-34.0) 05/23/22 05:34 MCHC 32.9 g/dL (32.0-36.0) 05/23/22 05:34 RDW Std Deviation 47.9 fL (36.4-46.3) H 05/23/22 05:34 RDW Coeff of Vivien 13.8 % (11.5-14.5) 05/23/22 05:34 Plt Count 191 K/uL (130-400) 05/23/22 05:34 MPV 10.6 fL (9.4-12.4) 05/23/22 05:34 Immature Gran % (Auto) 0.9 % 05/18/22 16:20 Neut % (Auto) 69.5 % 05/18/22 16:20 Lymph % (Auto) 17.1 % 05/18/22 16:20 [place] % (Auto) 11.3 % 05/18/22 16:20 Eos % (Auto) 1.0 % 05/18/22 16:20 Baso % (Auto) 0.2 % 05/18/22 16:20 Neut # (Auto) 7.41 K/uL (1.4-6.5) H 05/18/22 16:20 Lymph # (Auto) 1.83 K/uL (1.2-3.4) 05/18/22 16:20 [place] # (Auto) 1.21 K/uL (0.24-0.82) H 05/18/22 16:20 Eos # (Auto) 0.11 K/uL (0-0.50) 05/18/22 16:20 Baso # (Auto) 0.02 K/uL (0-0.2) 05/18/22 16:20 Immature Gran # (Auto) 0.10 K/uL (0.00-0.02) H 05/18/22 16:20 Absolute Nucleated RBC 0.02 K/uL (0-0) H 05/19/22 04:44 Nucleated RBC % (auto) 0.2 % 05/19/22 04:44 PT 23.5 Seconds (9.0-12.0) H 05/24/22 05:26 PT Cancelled 05/24/22 05:26 INR 2.3 (0.9-1.1) H 05/24/22 05:26 INR Cancelled 05/24/22 05:26 APTT 73.2 Seconds (21.0-31.0) H* 05/24/22 05:26 PTT Ratio 2.7 05/24/22 05:26 Sodium 137 mmol/L (136-145) 05/24/22 05:26 Potassium 4.2 mmol/L (3.5-5.1) 05/24/22 05:26 Chloride 101 mmol/L (98-107) 05/24/22 05:26 Carbon Dioxide 32 mmol/L (21-32) 05/24/22 05:26 Anion Gap 4 (3-11) 05/24/22 05:26 BUN 26 mg/dl (6-23) H 05/24/22 05:26 Creatinine 1.39 mg/dl (0.6-1.4) 05/24/22 05:26 Est Cr Clr Drug Dosing 50.6 ml/min 05/24/22 05:26 Est GFR ( Amer) 60.8 ml/min 05/24/22 05:26 Est GFR (Non-Af Amer) 52.4 ml/min 05/24/22 05:26 BUN/Creatinine Ratio 18.7 (10-20) 05/24/22 05:26 Glucose 81 mg/dl (70-99(Fasting)) 05/24/22 05:26 POC Glucose 107 mg/dl (70-99) H 05/18/22 23:16 Calcium 9.4 mg/dl (8.5-10.1) 05/24/22 05:26 Magnesium 2.0 mg/dl (1.7-2.4) 05/21/22 05:22 Total Bilirubin 1.3 mg/dl (0.2-1.0) H 05/20/22 05:41 AST 39 U/L (13-39) 05/20/22 05:41 ALT 107 U/L (7-52) H 05/20/22 05:41 Alkaline Phosphatase 67 U/L (34-104) 05/20/22 05:41 Troponin I High Sens 47.9 pg/ml (0-20) H 05/19/22 04:44 Total Protein 6.4 gm/dl (6.0-8.3) 05/20/22 05:41 Albumin 3.5 gm/dl (3.4-5.0) 05/20/22 05:41 Globulin 2.9 gm/dl (2.5-4.0) 05/20/22 05:41 Albumin/Globulin Ratio 1.2 (0.9-2) 05/20/22 05:41 TSH 1.580 uIu/ml (0.300-4.500) 05/18/22 16:20 SARS-CoV-2, RNA, NAAT NEGATIVE (NEGATIVE) 05/18/22 16:47 Impressions Chest X-Ray 05/18/22 16:24 XR chest 1V portable HISTORY: 67 years-old Male weakness acute weakness COMPARISON: Chest radiograph 07/14/2010 TECHNIQUE: AP view of the chest FINDINGS: Cardiac silhouette is enlarged. Prior median sternotomy. Pulmonary vascular congestion with interstitial coarsening and ill-defined bilateral airspace opacities. No pneumothorax or large pleural effusion. Degenerative changes of the shoulders and spine. Healed mid left clavicular fracture deformity. IMPRESSION: Cardiomegaly with pulmonary vascular congestion and mixed interstitial and alveolar opacities, likely major account representative of pulmonary edema. Pneumonia could appear similarly. ACT 112: Negative or not required by law. The above report was generated using voice recognition software. It may contain grammatical, syntax or spelling errors. Electronically signed by: Stone Snow M.D. 05/18/2022 5:35 PM Hospital Course (1) Atrial fibrillation with rapid ventricular response: (2) Chest pain: Patient is a 67-yr male with H/O Paroxysmal atrial fibrillation anticoagulated on warfarin, CAD with multiple interventions, s/p CABG, stent, bifascicular heart block, dyslipidemia, CVA, CKD III, gout presented to ER with complaint of chest pain, exertional SOB x 1 week. Outpatient cardiology office today and found to be in atrial fibrillation RVR with rate 200 and was transported to ER via EMS. Patient denies any noted palpitations. Atrial fibrillation with rapid ventricular response Bifascicular block Left ventricular systolic dysfunction: likely due to above Type II [place] due to demand ischemia in the setting of A. fib RVR and known CAD Hypoxia secondary to pulmonary edema S/P successful Cardioversion on 05/19/22 -CXR:Cardiomegaly with pulmonary vascular congestion and mixed interstitial and alveolar opacities, likely major account representative of pulmonary edema. Pneumonia could appear similarly. -ECHO: Atrial fibrillation with rapid ventricle response present during echocardiogram. Left atrium is dilated to moderate to severe degree. Severe global hypokinesis of left ventricle. Left ventricle systolic function is severely reduced. EF 35%. -Continue amiodarone, metoprolol as per cardiology INR therapeutic: 2.3 today Decrease Coumadin to 5 mg today Appreciate cardiology input IV heparin discontinued Amiodarone decreased to 200 mg daily, metoprolol decreased to 25 mg daily today Needs follow up with Cardiology upon discharge (3) CAD (coronary artery disease): H/O multiple coronary interventions, stent, CABG, stent of vein graft Continue aspirin, isosorbide, Ranexa Reported intolerance to statins in the past (4) Right bundle branch block: (5) Bifascicular block: History chronic RBBB, left posterior fascicular block (6) Stroke: Continue aspirin (7) CKD (chronic kidney disease), stage III: ZEB on CKD III Cr 1.6>>1.3 Monitor renal function (8) Gout: Continue allopurinol Transaminitis Likely secondary to hepatic congestion LFTs trended down Monitor DVT Px: Coumadin Code Status Fall code Total Time Total Time Spent Total Time Spent (In Minutes): 48 minutes Discharge Plan Discharge Items Patient Disposition: Home - Self-Care Reason For Visit: AFIB RVR Discharge Diagnosis: Atrial fibrillation with rapid ventricular response Acute Kidney Injury Activity: Per Instructions section Exercise/Sports: Gradually increase as tolerated Non-emergency contact: Primary Care Provider and Multimedia Services Manager Call non-emergency contact if: you have any medication questions, your symptoms worsen, your pain is concerning for you and you have a fever Follow-up/Referrals: Kuldeep Briggs MD [Primary Care Provider] - (Date & Time 05/30/2022 3:00 PM Provider Kuldeep Briggs MD [facility] ) Diet: Heart Healthy Addtl Attending Provider Instructions: Follow up with your PCP on 05/30/2022 3:00 PM Follow up with your Multimedia Services Manager / in 2 weeks Follow up with Coumadin Clinic in 2 -3 days for monitoring your PT/INR and adjusting your coumadin dosing --Get Blood test (PT/INR) in 2 days and follow up with Coumadin clinic as recommended --Your Trazodone is discontinued as it can interact with Amiodarone and worsen you arrhythmias Seek immediate medical attention if your symptoms reoccur or worsen Please take all medications as instructed on discharge list below. Please call if you have any questions or problems. You can reach a [facility] hospitalist on duty at [facility] 24 hours a day by calling [phone] Pending Studies at Discharge: No Stand-Alone Forms: My [facility], Smoking Cessation Medications and DC Order Prescriptions: New amiodarone 200 mg Tablet 200 mg PO QAM Qty: 30 2RF metoprolol succinate 25 mg Tablet Extended Release 24 Hr 25 mg PO DAILY Qty: 30 2RF Continued aspirin 81 mg Tablet,Delayed Release (Dr/Ec) 81 mg PO QAM isosorbide mononitrate 60 mg Tablet Extended Release 24 Hr 90 mg PO QAM Rx Instructions: 1 & 1/2 tablet dose warfarin 5 mg Tablet 5 mg PO UD Rx Instructions: takes on monday allopurinol 300 mg Tablet 300 mg PO HS ranolazine [Ranexa] 500 mg Tablet Extended Release 12 Hr 500 mg PO BID nitroglycerin 0.4 mg Tablet, Sublingual 1 tab sublingual UD PRN (Reason: Chest Pain) warfarin 5 mg tablet 7.5 mg PO UD Rx Instructions: sun, mon, wed, th, fri, sat prednisone 10 mg tablet 10 mg PO UD Rx Instructions: order 05/10/22 take 5 tablets daily for 2 days,4 tabs for 2 days,3 tabs for 2 days,2 tabs for 2 days, 1 tab for 2 days Repatha SureClick 140 mg/mL pen injector 140 mg SUBCUT . EVERY 14 DAYS latanoprost 0.005 % drops 1 drp OPL HS Discontinued trazodone 50 mg Tablet 150 mg PO HS metoprolol succinate 50 mg Tablet Extended Release 24 Hr 25 mg PO QAM Discharge Orders: Discharge Order (Routine); Ordered 05/24/22 Ordered By: Christopher Pryor Admission Data Admit Date/Time: 05/18/22 19:34 Attending Provider: Christopher Pryor Admit Provider: Aggie Miner Primary Care Provider: Kuldeep Briggs Other Providers: Ish Chris ; Aggie Miner ; Cheikh Beck
[2022-05-24] MEDS ORDERED: WARFARIN SOD 5 MG TAB PO SCH (16:00)
--- NOTE | 2022-05-25 06:47 | Electrocardiogram Report ---
Test Reason : Blood Pressure : / mmHG Vent. Rate : 049 BPM Atrial Rate : 049 BPM P-R Int : 144 ms QRS Dur : 132 ms QT Int : 568 ms P-R-T Axes : 065 102 078 degrees QTc Int : 513 ms Sinus bradycardia with Premature atrial complexes Possible Left atrial enlargement Right bundle branch block Septal infarct (cited on or before 24-MAY-2022) Abnormal ECG When compared with ECG of 23-MAY-2022 05:00, Premature atrial complexes are now Present Questionable change in initial forces of Septal leads T wave inversion now evident in Anterior leads Confirmed by Michele Restrepo ([id number]) on 05/25/2022 6:47:13 AM Referred By: REFERRED SELF Confirmed By:Michele Restrepo
[2022-05-25] MEDS ORDERED: METOPROLOL SUCC 25MG EXT REL TAB PO SCH (09:00)
[2022-05-25] MEDS ORDERED: AMIODARONE 200 MG TAB PO SCH (09:00)
== END 2022-05-24 15:41 | disposition home or self-care (01) | DRG 281 ==
LOC: ED 16:21 → SUATTDRO 19:34 → 2E 19:34 → 1E 21:58 → 4W 05-19 15:47
DX: I50.1 Left ventricular failure, unspecified; Z95.5 Presence of coronary angioplasty implant and graft; N18.30 Chronic kidney disease, stage 3 unspecified; I48.0 Paroxysmal atrial fibrillation; Z79.82 Long term (current) use of aspirin; I21.A1 Myocardial infarction type 2; E78.5 Hyperlipidemia, unspecified; I45.2 Bifascicular block; Z79.01 Long term (current) use of anticoagulants; R79.1 Abnormal coagulation profile; I25.10 Atherosclerotic heart disease of native coronary artery without angina pectoris; N17.9 Acute kidney failure, unspecified; I69.319 Unspecified symptoms and signs involving cognitive functions following cerebral infarction; M10.9 Gout, unspecified; R74.01 Elevation of levels of liver transaminase levels; Z79.899 Other long term (current) drug therapy; Z95.1 Presence of aortocoronary bypass graft